=== PATIENT | female | born 1935 | race Caucasian/White ===

== ENCOUNTER 2017-02-26 15:06 | Inpatient (IN) ==
[2017-02-26] MEDS ORDERED: NITROGLYCERIN 2% OINT 1 INCH/GM PACK TOP STA (15:58)
[2017-02-26] MEDS ORDERED: FUROSEMIDE 100 MG/10 ML VIAL IV STA (15:58)
--- NOTE | 2017-02-26 16:06 | Emergency Department Note ---
Oswaldo Donato Brittany, am scribing for, and in the presence of, Donta Sands MD 16:02. Wicho Donato Robert M, MD, personally performed the services described in this documentation, ascribed by Malia Chacon in my presence, and it is both accurate and complete [id number] . Arrival - Arrival Chief Complaint: Shortness of Breath Stated Complaint: trouble breathing,fluid build up ED Nursing Triage Note: Pt c/o SOB for a few days. Mode of Arrival: Wheelchair Limitations: No Limitations Source: Patient, RN Notes Reviewed - History of Present Illness HPI Narrative: Patient is a 81 y/o morbidly obese white female presenting to the ED with c/o shortness of breath which per patient onset a few days ago. Patient states this is worsened upon exertion. She has had some lower extremity swelling, but denies having any associated chest pain, nausea, vomiting, diaphoresis, neck pain, or arm pain. Family in room notes that patient does not utilize at home oxygen, but does use breathing tx's at home. While providing history patient appears to become dyspneic. PMHx significant for CHF and NIDDM. No other complaint/pain in the ED at this time. Onset (ago): day(s) ("a few days") Consistency: constant Allergies/Adverse Reactions: Allergies Allergy/AdvReac Type Severity Reaction Status Date / Time No Known Allergies Allergy Verified 09/29/16 06:51 Home Medications: Home Medications Medication Instructions Recorded Confirmed Type Atorvastatin [Lipitor] 20 mg PO DAILY 07/26/15 11/11/16 History glipiZIDE [Glipizide] 5 mg PO BID W/MEALS 07/26/15 10/24/16 History Aspirin EC Tab 81 mg PO DAILY 09/15/15 10/24/16 History Amiodarone Tab [Cordarone Tab] 200 mg PO BID tablet 10/23/15 11/11/16 Rx Albuterol Sulfate [Proair HFA] 2 puff INH Q4H PRN #1 inhaler 12/17/15 10/24/16 Rx hydrALAZINE TAB [Apresoline Tab] 50 mg PO BID 02/17/16 11/11/16 History ALPRAZolam [Xanax] 0.5 mg PO Q12HR PRN #60 tablet 09/09/16 11/11/16 Rx Furosemide Tab [Lasix Tab] 80 mg PO BID #60 tablet 09/09/16 11/11/16 Rx Albuterol/Ipratropium Neb [Duoneb] 3 ml RESP TX RT Q6H nebulization 10/04/16 Rx solution Insulin Glargine [Lantus] 30 unit SUBCUT DAILY injection 10/04/16 10/24/16 Rx Insulin Regular [HumuLIN R] See Protocol SUBCUT ACHS injection 10/04/16 Rx Collagenase Oint [Santyl Oint] 1 applic TOP DAILY 10/24/16 10/24/16 History traZODone [Desyrel] 50 mg PO BEDTIME 10/24/16 11/11/16 History Pantoprazole Tab [Protonix Tab] 40 mg PO DAILY #60 tablet 10/28/16 11/11/16 Rx Isosorbide Mononitrate [Isosorbide 30 mg PO DAILY 11/11/16 11/11/16 History Mononitrate ER] Carvedilol [Coreg] 6.25 mg PO BID #60 tablet 11/15/16 Rx Clindamycin HCl [Clindamycin Cap] 600 mg PO Q8HR #20 capsule 11/15/16 Rx HYDROcodone/ACETAMIN 7.5-325 1 tablet PO Q4H PRN #20 tablet 11/15/16 Rx [[place] 7.5-325] Review of System - Review of System 12 point system: reviewed and no additional remarkable complaints except as stated - Review of System Constitutional: Absent: chills, fever Eyes: Absent: vision change Head/Ears/Nose/Throat: Absent: nasal drainage, sore throat Respiratory: Present: respiratory distress Cardiovascular: Absent: chest pain Gastrointestinal: Absent: abdominal pain, nausea, vomiting, diarrhea, constipation Genitourinary female: Absent: dysuria, frequency, urgency Musculoskeletal: Absent: arm pain, back pain, leg pain, neck pain Skin: Absent: rash Neurological: Absent: headache Psychiatric: Absent: anxiety, depression Medical,Surgical,& Family Hx - Medical History Cardio: History of: Cardiac Dysrhythmia (Paroxysmal atrial fibrillation), CHF ( Status post CRTD), CAD (Status post coronary bypass grafting in 2009), Hypertension, [place], Pacemaker (CRTD), Cardiovascular Problems (CABG --3 bypass 2009) Psychological: History of: Anxiety Disorders Neurology: History of: TIA No history of: Seizures HEENT: History of: Eye Problem (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)) Endocrine: History of: Diabetes Mellitus (IDDM), Diabetes Mellitus (NIDDM), Dyslipidemia No history of: Thyroid Disorder Respiratory: History of: COPD, Pulmonary Hypertension No history of: Pulmonary Embolism, Lung Cancer Renal: History of: Renal Failure (creatinine 2.2), Renal Problems Genitourinary: History of: Kidney Stones Hematology: No history of: Clotting Problems, Blood Disorders - Surgical History Cardiac Surgeries: Sugical HX of: Cardiac Catheterization, Cardiac Surgery (CABG ) Thoracic Surgeries: Patient denies;: Lobectomy HEENT Surgeries: Patient denies: Thyroid Surgery Abdominal Surgeries: Surgical HX of: Abdominal Surgery, Appendectomy, Cholecystectomy Reproductive Surgeries: Patient denies;: Gynecologic Surgery - Family History Family History: Reports;: Family Cancer (mother), Family Diabetes (brother), Family Heart Disease (father and brothers), Family Hypertension (sister) Denies;: Family Stroke - Social History Smoking Status: Never smoker Exam Vital Signs: Vital Signs Temperature 97.9 F 02/26/17 15:16 Pulse Rate 63 02/26/17 15:16 Respiratory Rate 26 H 02/26/17 15:16 Blood Pressure 166/80 02/26/17 15:16 O2 Sat by Pulse Oximetry 93 L 02/26/17 15:16 - General General appearance: alert, in no apparent distress, obese (morbidly) - Head Head exam: Present: atraumatic, normocephalic, normal inspection - Eye Eye exam: Present: normal appearance, PERRL, EOMI - ENT ENT exam: Present: normal exam, normal oropharynx - Neck Neck exam: Present: normal inspection, full ROM, trachea midline - Chest Chest inspection: Present: normal inspection, symmetric chest wall rise - Respiratory Respiratory exam: Present: respiratory distress (dyspneic when speaking), rhonchi (rhonchi noted, particularly in the left lung base). Absent: normal lung sounds bilaterally - Cardiovascular Cardiovascular exam: Present: regular rate, normal rhythm, normal heart sounds - Abdominal Exam Abdominal exam: Present: soft, normal bowel sounds. Absent: tenderness - Extremities Exam Extremities exam: Present: normal inspection - Back Exam Back exam: Present: normal inspection - Neurological Exam Neurological exam: Present: alert, oriented X3, CN II-XII intact. Absent: motor sensory deficit - Psychiatric Psychiatric exam: Present: normal affect, normal mood - Skin Skin exam: Present: warm, dry Course - Consultations Consultation #1: The hospitalist service will evaluate and admit the patient. Time: 17:12 Results - Labs CBC & BMP: 02/26/17 16:36 Lab Results: I have reviewed the patients labs Labs: Lab Results WBC 16.0 T/CUMM (4-12) H 02/26/17 16:36 RBC 3.52 MC/CUMM (3.8-5.5) L 02/26/17 16:36 Hgb 9.4 GM/DL (12.0-16.0) L 02/26/17 16:36 Hct 29.1 VOL% (35.7-47.0) L 02/26/17 16:36 MCV 82.7 FL (87-102) L 02/26/17 16:36 MCH 27 PG (27-34) 02/26/17 16:36 MCHC 32.3 GM/DL (32-36) 02/26/17 16:36 RDW 15.8 % (9.3-17.3) 02/26/17 16:36 Plt Count 426 T/CUMM (130-400) H 02/26/17 16:36 MPV 9.3 FL (9.6-12.0) L 02/26/17 16:36 Neut % (Auto) 62.3 % (38.7-73.9) 02/26/17 16:36 Lymph % (Auto) 22.2 % (21.3-54.2) 02/26/17 16:36 Sampson % (Auto) 4.7 % (1.7-12.7) 02/26/17 16:36 Eos % (Auto) 9.7 % (0.00-10.9) 02/26/17 16:36 Baso % (Auto) 0.5 % (0.0-0.8) 02/26/17 16:36 Neut # (Auto) 10.0 10*3/uL (1.4-7.4) H 02/26/17 16:36 Lymph # (Auto) 3.5 10*3/uL (1.4-4.0) 02/26/17 16:36 Sampson # (Auto) 0.8 10*3/uL (0.11-0.8) 02/26/17 16:36 Eos # (Auto) 1.6 10*3/uL (0.0-0.87) H 02/26/17 16:36 Baso # (Auto) 0.1 10*3/uL (0.0-0.2) 02/26/17 16:36 Immature Gran % 0.6 % 02/26/17 16:36 Nucleated RBC % 0.0 /100WBC 02/26/17 16:36 Immature Gran # 0.09 # 02/26/17 16:36 Nucleated RBCs # 0.00 10*3/uL 02/26/17 16:36 - Diagnostic Findings Procedure: Chest x-ray: image reviewed by me (CHF with mild volume overload. Pacemaker is stable.) Disposition Clinical Impression: Cardiomyopathy, Mitral regurgitation, Dyspnea, Atrial fibrillation with RVR, Chronic systolic CHF (congestive heart failure), Diabetes mellitus, Acute on chronic diastolic CHF (congestive heart failure) Case discussed with: patient, patient's family Disposition: Still a Patient Condition: Stable Time of Disposition: 17:13
--- NOTE | 2017-02-26 16:16 | XRay Report ---
History: Shortness of breath Date: 02/26/2017 Study: Chest x-ray AP portable Comparison exam: October 24, 2016 There is cardiomegaly. The pulmonary vasculature is slightly prominent. There is some hazy pulmonary edema in the lung bases, left more than right. A left subclavian multiple lead transvenous pacemaker device is stable in appearance. Osseous structures are unchanged. Impression: Cardiomegaly and evidence of CHF with some mild bibasilar pulmonary edema PROCEDURE INTERPRETED AT [facility] DEPARTMENT OF RADIOLOGY Final Report Signed by: Dr. Shira Sweet
[2017-02-26] MEDS ORDERED: NITROGLYCERIN 2% OINT 1 INCH/GM PACK TOP ONE (16:53)
[2017-02-26] MEDS ORDERED: FUROSEMIDE 40 MG/4 ML VIAL ONE (16:53)
[2017-02-26] MEDS ORDERED: FUROSEMIDE 20 MG/2 ML VIAL ONE (16:53)
[2017-02-26 17:04] LABS: Basophils # 0.1 10*3/uL (0.0-0.2); Basophils % 0.5 % (0.0-0.8); Eosinophils # 1.6 10*3/uL (0.0-0.87); Eosinophils % 9.7 % (0.00-10.9); Hematocrit 29.1 VOL% (35.7-47.0); Hemoglobin 9.4 GM/DL (12.0-16.0); Immature Granulocytes % 0.6 %; Immature Granulocytes Absolute 0.09 #; Lymphocytes # 3.5 10*3/uL (1.4-4.0); Lymphocytes % 22.2 % (21.3-54.2); Mean Corpuscular HGB Conc 32.3 GM/DL (32-36); Mean Corpuscular Hemoglobin 27 PG (27-34); Mean Corpuscular Volume 82.7 FL (87-102); Mean Platelet Volume 9.3 FL (9.6-12.0); Monocytes # 0.8 10*3/uL (0.11-0.8); Monocytes % 4.7 % (1.7-12.7); Neutrophils % 62.3 % (38.7-73.9); Platelet Count 426 T/CUMM (130-400); Red Blood Count 3.52 MC/CUMM (3.8-5.5); Red Cell Distribution Width 15.8 % (9.3-17.3)
[2017-02-26 17:11] LABS: INR 1.1
[2017-02-26 17:26] LABS: Albumin 2.4 G/DL (3.4-5.0); Bilirubin,Total 0.4 MG/DL (0.2-1.0); Calcium 8.1 MG/DL (8.5-10.1); Potassium 3.8 MMOL/L (3.5-5.1); Total Protein 6.4 G/DL (6.4-8.3); Troponin I Only 0.026 NG/ML (0.00-0.045)
--- NOTE | 2017-02-26 17:43 | Hospitalist History & Physical ---
Assessment and Plan (1) Chronic kidney disease Status: Acute Assessment and plan: The patient has documented chronic kidney disease. BUN and creatinine noted at 35 and 2.80 at the time of admission. Upon review of previous medical records last encounter on November 15, 2016 BUN was noted at 46 creatinine at 2.80. This is somewhat of an improvement ,however we will monitor closely during the clinical encounter. Current Visit: Yes (2) Diabetes Status: Acute Assessment and plan: We will obtain hemoglobin A1c, start Accu-Cheks with sliding scale coverage. Current Visit: Yes (3) Chronic systolic CHF (congestive heart failure) Status: Chronic Assessment and plan: We will diurese with caution due to patient's current renal function. We will resume home medications as previously ordered, obtain BNP, recheck chest x-ray and lites in a.m.. Will obtain echocardiogram and consult cardiology to evaluate and assist during the clinical encounter. Current Visit: Yes History of Present Illness Chief complaint: Shortness of breath History of present illness: This is a chronically ill 81-year-old female that presented to the ED at [facility] this afternoon for the evaluation of shortness of breath. 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 Patient has surgical history significant for: Biventricular ICD placement, cardiac catheterization, coronary artery bypass graft, appendectomy, and cholecystectomy. The patient reported the onset of symptoms 2 days prior to presentation. She reports that the dyspnea became so severe that she was unable to lie flat last night and becomes very tired upon minimal exertion. Pertinent positives include: Dyspnea , edema, orthopnea, paroxysmal nocturnal dyspnea, and malaise; pertinent negative include: Chest pain, nausea, vomiting, diaphoresis, neck or arm pain; pertinent negatives. The family reported that they gave multiple nebulizer treatments prior to presentation however the treatments were ineffective. They became concerned due to the severity of her respiratory status and transported her to the ED for further evaluation. At the time of ED presentation, the patient was notably dyspneic. Inhaled bronchodilators were initiated. Labs were obtained; complete blood count reported WBCs at 16.0, hemoglobin 9.4, hematocrit 29.1, and platelet count of 426. Coagulation panels reported an INR at 1.1, PT 12.0. Complete metabolic profile reported a sodium at 143, potassium 3.8, chloride 104, carbon dioxide 29 , BUN 35, creatinine 2.80, glucose 77, calcium 8.1, magnesium 2.0, AST at 57, ALT 52, alkaline phosphatase at 83. Cardiac enzymes reported a troponin at 0.026. Chest x-ray reported cardiomegaly and evidence of congestive heart failure with submitted bibasilar pulmonary edema. After brief discussion with both Dr. Sands and Dr. Olivares, the patient will be admitted to the hospitalist services for continuation of care. Home medications have been reviewed and reconciled. CODE STATUS discussed; patient is a FULL CODE. Home Medications Medication Instructions Recorded Confirmed Type Atorvastatin [Lipitor] 20 mg PO DAILY 07/26/15 11/11/16 History glipiZIDE [Glipizide] 5 mg PO BID W/MEALS 07/26/15 10/24/16 History Aspirin EC Tab 81 mg PO DAILY 09/15/15 10/24/16 History Amiodarone Tab [Cordarone Tab] 200 mg PO BID tablet 10/23/15 11/11/16 Rx Albuterol Sulfate [Proair HFA] 2 puff INH Q4H PRN #1 inhaler 12/17/15 10/24/16 Rx hydrALAZINE TAB [Apresoline Tab] 50 mg PO BID 02/17/16 11/11/16 History ALPRAZolam [Xanax] 0.5 mg PO Q12HR PRN #60 tablet 09/09/16 11/11/16 Rx Furosemide Tab [Lasix Tab] 80 mg PO BID #60 tablet 09/09/16 11/11/16 Rx Albuterol/Ipratropium Neb [Duoneb] 3 ml RESP TX RT Q6H nebulization 10/04/16 Rx solution Insulin Glargine [Lantus] 30 unit SUBCUT DAILY injection 10/04/16 10/24/16 Rx Insulin Regular [HumuLIN R] See Protocol SUBCUT ACHS injection 10/04/16 Rx Collagenase Oint [Santyl Oint] 1 applic TOP DAILY 10/24/16 10/24/16 History traZODone [Desyrel] 50 mg PO BEDTIME 10/24/16 11/11/16 History Pantoprazole Tab [Protonix Tab] 40 mg PO DAILY #60 tablet 10/28/16 11/11/16 Rx Isosorbide Mononitrate [Isosorbide 30 mg PO DAILY 11/11/16 11/11/16 History Mononitrate ER] Carvedilol [Coreg] 6.25 mg PO BID #60 tablet 11/15/16 Rx Clindamycin HCl [Clindamycin Cap] 600 mg PO Q8HR #20 capsule 11/15/16 Rx HYDROcodone/ACETAMIN 7.5-325 1 tablet PO Q4H PRN #20 tablet 11/15/16 Rx [[place] 7.5-325] Allergies Allergy/AdvReac Type Severity Reaction Status Date / Time No Known Allergies Allergy Verified 09/29/16 06:51 Medical,Surgical,& Family Hx - Medical History Cardio: History of: Cardiac Dysrhythmia (Paroxysmal atrial fibrillation), CHF ( Status post CRTD), CAD (Status post coronary bypass grafting in 2009), Hypertension, [place], Pacemaker (CRTD), Cardiovascular Problems (CABG --3 bypass 2009) Psychological: History of: Anxiety Disorders Neurology: History of: TIA No history of: Seizures HEENT: History of: Eye Problem (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)) Endocrine: History of: Diabetes Mellitus (IDDM), Diabetes Mellitus (NIDDM), Dyslipidemia No history of: Thyroid Disorder Respiratory: History of: COPD, Pulmonary Hypertension No history of: Pulmonary Embolism, Lung Cancer Renal: History of: Renal Failure (creatinine 2.2), Renal Problems Genitourinary: History of: Kidney Stones Hematology: No history of: Clotting Problems, Blood Disorders - Surgical History Cardiac Surgeries: Sugical HX of: Cardiac Catheterization, Cardiac Surgery (CABG ) Thoracic Surgeries: Patient denies;: Lobectomy HEENT Surgeries: Patient denies: Thyroid Surgery Abdominal Surgeries: Surgical HX of: Abdominal Surgery, Appendectomy, Cholecystectomy Reproductive Surgeries: Patient denies;: Gynecologic Surgery - Family History Family History: Reports;: Family Cancer (mother), Family Diabetes (brother), Family Heart Disease (father and brothers), Family Hypertension (sister) Denies;: Family Stroke - Social History Smoking Status: Never smoker 12 point system: reviewed and no additional remarkable complaints except as stated Exam - Constitutional Vitals: Period Temp Pulse Resp BP Sys/Bhatti Pulse Ox Last 24 Hr 97.9 F 63 26 166/80 93 General appearance: mild distress, morbidly obese - Head Head exam: Present: normal inspection, normocephalic, atraumatic - Eye Pupils: Present: ISHA (Equal round and reactive to the right eye only; cataract noted to the left eye no reaction noted) - ENT ENT exam: Present: normal exam, normal external ear exam, normal oropharynx - Neck Neck exam: Present: normal inspection. Absent: lymphadenopathy, meningismus, thyromegaly - Respiratory Respiratory exam: Present: accessory muscle use, rhonchi - Cardiovascular Cardiovascular exam: Present: regular rate and rhythm. Absent: carotid bruit, diastolic murmur, gallop, JVD, rubs, systolic murmur - GI/Abdominal GI/Abdominal exam: Present: normal bowel sounds, soft - Extremities Exam Extremities exam: Present: edema (+3 edema noted to bilateral lower extremities) - Back Exam Back exam: Present: normal inspection - Neurological Exam Neurological exam: Present: alert, oriented X3 - Psychiatric Psychiatric exam: Present: anxious - Skin Skin exam: Present: normal color, warm, dry Results - Labs CBC & BMP: 02/26/17 16:36 02/26/17 16:36 Lab Results: I have reviewed the past 24 hour labs
[2017-02-26] MEDS ORDERED: DOCUSATE SODIUM 100 MG CAPSULE PO PRN (18:58)
[2017-02-26] MEDS ORDERED: ZALEPLON 5 MG CAPSULE PO PRN (18:58)
[2017-02-26] MEDS ORDERED: ONDANSETRON 4 MG/2 ML VIAL IV PRN (18:58)
[2017-02-26] MEDS ORDERED: GLUCAGON 1 MG VIAL IM PRN (19:01)
[2017-02-26] MEDS ORDERED: ALBUTEROL 2.5 MG/3 ML NEB RESP TX PRN (19:03)
[2017-02-26] MEDS ORDERED: ALPRAZolam 0.5 MG TABLET PO PRN (19:03)
[2017-02-26 19:59] LABS: Calcium 7.9 MG/DL (8.5-10.1)
[2017-02-26 20:36] LABS: Apearance,Urine CLEAR (Clear); Bilirubin,Urine Negative (Negative); Blood, Urine Negative (Negative); Glucose,Urine (UA) Negative (Negative); Ketones,Urine Negative (Negative); Mucus,Urine Occasional /LPF (Occasional); Nitrite,Urine Negative (Negative); Protein,Urine Negative; RBC,Urine 1 /HPF (0-4); Urine Color Straw (Yellow); Urine Specific Gravity 1.006 (1.001-1.035); Urine Urobilinogen < 2.0 EU/DL (0.2-1.0); WBC,Urine <1 /HPF (0-6)
[2017-02-26] MEDS: SILVER SULFADIAZINE 1% CREAM 25 GM TUBE TOP SCH (21:23)
[2017-02-26] MEDS: CLINDAMYCIN 300 MG CAPSULE PO SCH (21:24)
[2017-02-26] MEDS: CARVEDILOL 6.25 MG TABLET PO SCH (21:24)
[2017-02-26] MEDS: FUROSEMIDE 100 MG/10 ML VIAL IV SCH (21:24)
[2017-02-26] MEDS: AMIODARONE 200 MG TABLET PO SCH (21:24)
[2017-02-26] MEDS: ENOXAPARIN 30 MG/0.3 ML SYRINGE SUBCUT SCH (21:32)
[2017-02-27] MEDS: ALBUTEROL/IPRATROPIUM 3 ML NEB RESP TX SCH ×4 (00:21→19:33)
--- NOTE | 2017-02-27 02:40 | EKG Report ---
Stationary ECG Study [facility] ER Test Date: 02/26/2017 3:23:30 PM Pat Name: ROSA ELENA SCHWAB Department: Room: 522 Gender: F Core Piler: Ramesh Santiago : 1935 Requested by: Donta Sands Order Number: [id number] Reading MD: TIFFANY KAM Intervals Hardy Rate: 59 P: 999 MI: 163 QRS: 207 QRSD: 174 T: 78 QT: 519 QTc: 519 Interpretive Statements Atrial-biventricular paced rhythm Electronically Signed On 02-27-17 08:52:29 CDT by TIFFANY KAM [email or web address]
[2017-02-27] MEDS: FUROSEMIDE 100 MG/10 ML VIAL IV SCH ×3 (03:47→20:03)
[2017-02-27] MEDS: CLINDAMYCIN 300 MG CAPSULE PO SCH ×3 (05:39→21:15)
[2017-02-27 06:32] LABS: Basophils # 0.1 10*3/uL (0.0-0.2); Basophils % 0.6 % (0.0-0.8); Eosinophils # 1.1 10*3/uL (0.0-0.87); Eosinophils % 9.6 % (0.00-10.9); Hematocrit 26.3 VOL% (35.7-47.0); Hemoglobin 8.5 GM/DL (12.0-16.0); Immature Granulocytes % 0.6 %; Immature Granulocytes Absolute 0.07 #; Lymphocytes # 2.7 10*3/uL (1.4-4.0); Lymphocytes % 22.9 % (21.3-54.2); Mean Corpuscular HGB Conc 32.3 GM/DL (32-36); Mean Corpuscular Hemoglobin 27 PG (27-34); Mean Corpuscular Volume 82.7 FL (87-102); Mean Platelet Volume 9.2 FL (9.6-12.0); Monocytes # 0.7 10*3/uL (0.11-0.8); Monocytes % 5.8 % (1.7-12.7); Neutrophils % 60.5 % (38.7-73.9); Platelet Count 364 T/CUMM (130-400); Red Blood Count 3.18 MC/CUMM (3.8-5.5); Red Cell Distribution Width 15.8 % (9.3-17.3); White Blood Count 11.6 T/CUMM (4-12)
--- NOTE | 2017-02-27 07:45 | XRay Report ---
Exam: XR chest 1V portable Date: 02/27/2017 4:00 AM Indication: Shortness of breath Comparison: 02/26/2017 Technical: AP portable Findings: Cardiac pacing device with defibrillator leads with atrial ventricular and coronary sinus leads present. External cardiac leads are present. ASVD is present. There is calcic is in tracheobronchial tree. Surgical clips are present in the left aortopulmonic window area and previous sternotomy wires are present. Low volume effusions and mild shunt vascularity without pneumothorax. Cardiomegaly is noted. Impression: 1. Persistent cardiomegaly and mild CHF 2. Stable persistent cardiac pacing device defibrillator leads 3. Previous sternotomy PROCEDURE INTERPRETED AT [facility] DEPARTMENT OF RADIOLOGY Final Report Signed by: Dr. Gunner Danielle
[2017-02-27] MEDS: metOLazone 2.5 MG TABLET PO SCH (08:26)
[2017-02-27] MEDS: ATORVASTATIN 20 MG TABLET PO SCH (08:26)
[2017-02-27] MEDS: ISOSORBIDE MONONITRATE 30 MG TABLET PO SCH (08:26)
[2017-02-27] MEDS: INSULIN GLARGINE 100 UNIT/ML SUBCUT SCH (08:26)
[2017-02-27] MEDS: glipiZIDE 5 MG TABLET PO SCH ×2 (08:26→16:10)
[2017-02-27] MEDS: PANTOPRAZOLE 40 MG TABLET PO SCH (08:26)
[2017-02-27] MEDS: INSULIN REGULAR 100 UNIT/ML SUBCUT SCH ×2 (08:26→16:10)
[2017-02-27] MEDS: AMIODARONE 200 MG TABLET PO SCH ×2 (08:26→20:03)
[2017-02-27] MEDS: CARVEDILOL 6.25 MG TABLET PO SCH ×2 (08:26→20:03)
[2017-02-27] MEDS: SILVER SULFADIAZINE 1% CREAM 25 GM TUBE TOP SCH (08:27)
[2017-02-27] MEDS ORDERED: COLLAGENASE OINT 30 GM TUBE TOP SCH (09:00)
[2017-02-27] MEDS: DESITIN 4OZ/NYSTATIN 15 GRAM MIXTURE PASTE TOP SCH ×2 (13:12→20:07)
--- NOTE | 2017-02-27 14:34 | Hospitalist Progress Note ---
Assessment and Plan (1) Acute exacerbation of CHF (congestive heart failure) Status: Acute Assessment and plan: acute systolic and diastolic heart failure, BNP elevated at 1324, cont lasix 60 mg IV every 8 hours. Cont coreg Current Visit: Yes (2) Atrial fibrillation Status: Chronic Assessment and plan: cont coreg and amiodarone Current Visit: No Qualifiers: Atrial fibrillation type: paroxysmal Qualified Code(s): I48.0 - Paroxysmal atrial fibrillation (3) Insulin dependent diabetes mellitus Status: Chronic Assessment and plan: cont glipizide and lantus 30 units Current Visit: No (4) HTN (hypertension) Status: Chronic Assessment and plan: controlled Current Visit: No Qualifiers: (5) Chronic kidney disease Status: Acute Assessment and plan: chronic stage 3 Current Visit: Yes (6) Anemia Status: Acute Assessment and plan: cont protonix Current Visit: Yes Hospitalist: Subjective Interval history: Patient lives independently. She came in for shortness of breath and was told she had CHF exacerbation. Her last echo was in May 2016 at which time her EF is only 10%. She also has grade 4 diastolic dysfunction and severe pulmonary hypertension with PAP of 57 Exam - Constitutional Vitals: Period Temp Pulse Resp BP Sys/Bhatti Pulse Ox Last 24 Hr 97.2 F-99.1 F 60-69 16-26 123-166/54-80 92-99 Exam: Heart Rate-[RRR] Lungs-[very diminished ] GI-[+bs soft, NT] Ext-[trace edema] Neuro [Motor 5/5], [alert and oriented times 3] psych [normal mood and affect] General [no acute distress] Results - Labs CBC & BMP: 02/27/17 06:03 02/26/17 19:27 Lab Results: I have reviewed the past 24 hour labs Labs: UA is negative for infection - Diagnostic Findings Procedure: Chest x-ray: report reviewed by me (Cardiomegaly and CHF pacing device noted), Ultrasound: report reviewed by me (Echo from May 2016 with EF of 10% and grade 4 diastolic dysfunction with severe pulmonary hypertension.) Quality Measures - VTE Contraindication to Mechanical VTE Prophylaxis: Local Inflammation
[2017-02-27] MEDS: ENOXAPARIN 30 MG/0.3 ML SYRINGE SUBCUT SCH (18:24)
[2017-02-27] MEDS: DEXTROSE 50% 25 GM/50 ML VIAL IV PRN (21:20)
[2017-02-28] MEDS: ALBUTEROL/IPRATROPIUM 3 ML NEB RESP TX SCH ×4 (00:09→18:50)
[2017-02-28] MEDS: FUROSEMIDE 100 MG/10 ML VIAL IV SCH ×3 (03:47→19:55)
[2017-02-28] MEDS: CLINDAMYCIN 300 MG CAPSULE PO SCH (05:46)
[2017-02-28] MEDS: ISOSORBIDE MONONITRATE 30 MG TABLET PO SCH (08:36)
[2017-02-28] MEDS: INSULIN GLARGINE 100 UNIT/ML SUBCUT SCH (08:36)
[2017-02-28] MEDS: PANTOPRAZOLE 40 MG TABLET PO SCH (08:36)
[2017-02-28] MEDS: AMIODARONE 200 MG TABLET PO SCH ×2 (08:36→20:00)
[2017-02-28] MEDS: INSULIN REGULAR 100 UNIT/ML SUBCUT SCH ×2 (08:36→16:16)
[2017-02-28] MEDS: ATORVASTATIN 20 MG TABLET PO SCH (08:36)
[2017-02-28] MEDS: metOLazone 2.5 MG TABLET PO SCH (08:36)
[2017-02-28] MEDS: SILVER SULFADIAZINE 1% CREAM 25 GM TUBE TOP SCH (08:36)
[2017-02-28] MEDS: CARVEDILOL 6.25 MG TABLET PO SCH ×2 (08:36→20:00)
[2017-02-28] MEDS: DESITIN 4OZ/NYSTATIN 15 GRAM MIXTURE PASTE TOP SCH ×2 (08:36→20:01)
--- NOTE | 2017-02-28 10:15 | Hospitalist Progress Note ---
Assessment and Plan (1) Acute exacerbation of CHF (congestive heart failure) Status: Acute Assessment and plan: acute systolic and diastolic heart failure, BNP elevated at 1324, cont lasix 60 mg IV every 8 hours. Cont coreg, bmp in am Current Visit: Yes (2) Atrial fibrillation Status: Chronic Assessment and plan: cont coreg and amiodarone Current Visit: No Qualifiers: Atrial fibrillation type: paroxysmal Qualified Code(s): I48.0 - Paroxysmal atrial fibrillation (3) Insulin dependent diabetes mellitus Status: Chronic Assessment and plan: cont lantus, but hold glucotrol Current Visit: No (4) HTN (hypertension) Status: Chronic Assessment and plan: controlled Current Visit: No Qualifiers: (5) Chronic kidney disease Status: Acute Assessment and plan: chronic stage 3 Current Visit: Yes (6) Anemia Status: Acute Assessment and plan: cont protonix Current Visit: Yes (7) Open wound of both lower extremities with complication Status: Acute Assessment and plan: Dr. Cesar consulted and wound care consulted, may need debridement, wbc improving , change clindamycin to IV Current Visit: Yes Hospitalist: Subjective Interval history: bs drooped to 41, glucotrol xl on hold, patient does not want to go for rehab, cared for at home by family. daughter at bedside. Exam - Constitutional Vitals: Period Temp Pulse Resp BP Sys/Bhatti Pulse Ox Last 24 Hr 97.4 F-98.8 F 57-61 16-20 114-142/45-64 95-100 Exam: Heart Rate-[RRR] Lungs-[very diminished but clear GI-[+bs soft, NT] Ext-[trace edema] Neuro [Motor 5/5], [alert and oriented times 3] psych [normal mood and affect] General [no acute distress] Skin necrotic and nonhealing bilateral leg wounds per pictures Results - Labs CBC & BMP: 02/27/17 06:03 02/26/17 19:27 Lab Results: I have reviewed the past 24 hour labs Labs: Urine culture growing gram-negative rods, blood cultures 2 negative no growth Quality Measures - VTE Contraindication to Mechanical VTE Prophylaxis: Local Inflammation
[2017-02-28] MEDS: CLINDAMYCIN INJ 600 MG in PREMIX 1 EACH IV SCH ×2 (11:42→17:30)
--- NOTE | 2017-02-28 13:26 | General Surgery Consult Note ---
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 Chronic bilateral lower extremity ulcers in a diabetic patient. She likely has a component of peripheral vascular disease, especially on the right, and in fact this is corroborated with her son who is present. She is followed locally by Dr. Dax Harman in [place] [facility]. They currently have local treatment plan in place with [place], and I do not disagree with this. At this time, there is no gross clinical sign of infection and she is also being treated systemically with clindamycin for pulmonary condition, which should cover any additional organisms present. I think we should continue to focus on her local care, light compression, and elevation, being aware that she likely has a component of underlying arterial insufficiency. Should the areas worsen under our watch, we may consider investigating her circulatory status further, but at this time with her other comorbidities, her sons awareness of her condition and seemingly wariness about making a lot of changes in her care regimen, I feel it safe to just observe her closely for any signs of digression, and only consider intervening or changing her care if we are concerned that she is in fact losing ground. Current Visit: Yes (2) Peripheral vascular disease in diabetes mellitus Status: Acute Current Visit: No History of Present Illness Chief complaint: Bilateral lower extremity ulcers History of present illness: Ms. Marcano is a 81 year old female Home Medications Medication Instructions Recorded Confirmed Type Atorvastatin [Lipitor] 20 mg PO DAILY 07/26/15 02/27/17 History glipiZIDE [Glipizide] 5 mg PO BID W/MEALS 07/26/15 02/27/17 History Aspirin EC Tab 81 mg PO DAILY 09/15/15 02/27/17 History Amiodarone Tab [Cordarone Tab] 200 mg PO BID tablet 10/23/15 02/27/17 Rx hydrALAZINE TAB [Apresoline Tab] 50 mg PO BID 02/17/16 02/27/17 History Furosemide Tab [Lasix Tab] 80 mg PO BID #60 tablet 09/09/16 02/27/17 Rx traZODone [Desyrel] 50 mg PO BEDTIME 10/24/16 02/27/17 History Isosorbide Mononitrate [Isosorbide 30 mg PO DAILY 11/11/16 02/27/17 History Mononitrate ER] Carvedilol [Coreg] 6.25 mg PO BID #60 tablet 11/15/16 02/27/17 Rx Cilostazol [Pletal] 50 mg PO BID 02/27/17 02/27/17 History HYDROcodone/ACETAMIN 7.5-325 7.5 mg PO Q6HR PRN 02/27/17 02/27/17 History [[place] 7.5-325] Multivitamin [Multivitamins] 1 tablet PO DAILY 02/27/17 02/27/17 History Allergies Allergy/AdvReac Type Severity Reaction Status Date / Time No Known Allergies Allergy Verified 09/29/16 06:51 Medical,Surgical,& Family Hx - Medical History Cardio: History of: Cardiac Dysrhythmia (Paroxysmal atrial fibrillation), CHF ( Status post CRTD), CAD (Status post coronary bypass grafting in 2009), Hypertension, MS, Pacemaker (CRTD), Cardiovascular Problems (CABG --3 bypass 2009) Psychological: History of: Anxiety Disorders Neurology: History of: TIA No history of: Seizures HEENT: History of: Eye Problem (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)) Endocrine: History of: Diabetes Mellitus (IDDM), Diabetes Mellitus (NIDDM), Dyslipidemia No history of: Thyroid Disorder Respiratory: History of: COPD, Pulmonary Hypertension No history of: Pulmonary Embolism, Lung Cancer Renal: History of: Renal Failure (creatinine 2.2), Renal Problems Genitourinary: History of: Kidney Stones Hematology: No history of: Clotting Problems, Blood Disorders Other: History of: Miscellaneous Medical Problems (Bilateral lower extremity ulcers with chronic venous stasis disease) - Surgical History Cardiac Surgeries: Sugical HX of: Cardiac Catheterization, Cardiac Surgery (CABG ) Thoracic Surgeries: Patient denies;: Lobectomy HEENT Surgeries: Patient denies: Thyroid Surgery Abdominal Surgeries: Surgical HX of: Abdominal Surgery, Appendectomy, Cholecystectomy Reproductive Surgeries: Patient denies;: Gynecologic Surgery - Family History Family History: Reports;: Family Cancer (mother), Family Diabetes (brother), Family Heart Disease (father and brothers), Family Hypertension (sister) Denies;: Family Stroke - Social History Smoking Status: Never smoker Exam - Constitutional Vitals: Period Temp Pulse Resp BP Sys/Bhatti Pulse Ox Last 24 Hr 97.4 F-98.6 F 57-61 16-20 114-147/45-70 95-100 General appearance: morbidly obese, other (She is sitting up in bed with family present, in no acute distress at this time. Her nasal cannula oxygen is in place and she is eating lunch. She is able to carry on short sentences before becoming short of breath.) - Head Head exam: Present: normocephalic - Eye Eye exam: Absent: periorbital swelling - ENT Mouth exam: Present: dry mucosa - Respiratory Respiratory exam: Present: other (See above. She is able to carry short sentences before becoming short of breath. There is no gross rales or wheezes.) . Absent: accessory muscle use, stridor - Cardiovascular Cardiovascular exam: Present: RRR - GI/Abdominal GI/Abdominal exam: Present: other (Abdomen is obese and soft hypoactive bowel sounds. No guarding, no distention, no rebound tenderness) - Extremities Exam Extremities exam: Present: other (Bilateral lower extremities are wrapped from the knee down. There is trace to 1+ edema. There is no advancing erythema. On the left medial heel has a moist, very tender ulceration with fatty layer exposed. This is roughly 4 x 2.5 cm in size. Posterior to this is some soft, necrotic tissue with eschar. This is difficult to assess with certainty, as there is Silvadene on the wound, but I see no gross purulence or loose necrotic tissue present. At the anterior tibia on the left there are 2 smaller more superficial ulcers each less than 1 cm in size. There is no gross necrotic tissue, no purulence, no advancing redness of these areas. On the right, there are more extensive ulcerations. These extend from the mid calf along the gaiter area laterally allthewayto the lateral malleolus. These wounds do have soft eschar and slough present. Again this is difficult to assess with certainty due to the Silvadene, but there is no redness, no gross purulence, and no large volume necrotic tissue present. These of course are quite tender to touch, and have the character more consistent of an arterial insufficiency type ulcer. It is difficult to palpate pulses with certainty, although there is no gross pallor, no grossly ischemic changes or hyperemia of the feet. At times I do think I am able to palpate a 1+ dorsalis pedis pulse bilaterally. There is a slightly delayed capillary refill, and approximately 3-4 seconds on the right with 2-3 second capillary refill on the left. Calves are soft and nontender.) - Neurological Exam Neurological exam: Present: alert, oriented X3 Quality Measures - VTE Contraindication to Mechanical VTE Prophylaxis: Local Inflammation Results - Labs CBC & BMP: 02/27/17 06:03 02/26/17 19:27 Lab Results: I have reviewed the past 24 hour labs (H&H is low 8.5/26.3)
[2017-02-28] MEDS: ENOXAPARIN 30 MG/0.3 ML SYRINGE SUBCUT SCH (18:11)
[2017-03-01] MEDS: FUROSEMIDE 100 MG/10 ML VIAL IV SCH ×3 (02:30→14:25)
[2017-03-01] MEDS: CLINDAMYCIN INJ 600 MG in PREMIX 1 EACH IV SCH ×3 (02:35→17:33)
[2017-03-01 04:32] LABS: Basophils % 0.3 % (0.0-0.8); Eosinophils # 1.7 10*3/uL (0.0-0.87); Eosinophils % 13.1 % (0.00-10.9); Hematocrit 24.7 VOL% (35.7-47.0); Immature Granulocytes % 0.5 %; Immature Granulocytes Absolute 0.07 #; Lymphocytes # 2.4 10*3/uL (1.4-4.0); Lymphocytes % 18.5 % (21.3-54.2); Mean Corpuscular HGB Conc 32.4 GM/DL (32-36); Mean Corpuscular Hemoglobin 27 PG (27-34); Mean Corpuscular Volume 83.2 FL (87-102); Mean Platelet Volume 9.4 FL (9.6-12.0); Monocytes # 0.8 10*3/uL (0.11-0.8); Monocytes % 6.5 % (1.7-12.7); Neutrophils # 7.9 10*3/uL (1.4-7.4); Neutrophils % 61.1 % (38.7-73.9); Platelet Count 346 T/CUMM (130-400); Red Blood Count 2.97 MC/CUMM (3.8-5.5); Red Cell Distribution Width 15.9 % (9.3-17.3)
[2017-03-01 04:56] LABS: Band Neutrophils 1 % (0-10); Eosinophils 14 % (0-10); Hypochromasia 2+; Lymphocytes 13 % (20-55); Platelet Estimate Normal; Segmented Neutrophils 68 % (50-85); Total Cells Counted 100
[2017-03-01 04:57] LABS: Calcium 7.9 MG/DL (8.5-10.1); Potassium 3.5 MMOL/L (3.5-5.1)
[2017-03-01] MEDS: DEXTROSE 50% 25 GM/50 ML VIAL IV PRN (05:30)
[2017-03-01] MEDS: ALBUTEROL/IPRATROPIUM 3 ML NEB RESP TX SCH ×4 (07:38→19:42)
[2017-03-01] MEDS: INSULIN REGULAR 100 UNIT/ML SUBCUT SCH ×2 (07:54→16:33)
[2017-03-01] MEDS: AMIODARONE 200 MG TABLET PO SCH ×2 (08:07→21:09)
[2017-03-01] MEDS: DESITIN 4OZ/NYSTATIN 15 GRAM MIXTURE PASTE TOP SCH ×2 (08:07→21:28)
[2017-03-01] MEDS: SILVER SULFADIAZINE 1% CREAM 25 GM TUBE TOP SCH (08:08)
[2017-03-01] MEDS: metOLazone 2.5 MG TABLET PO SCH (08:08)
[2017-03-01] MEDS: ISOSORBIDE MONONITRATE 30 MG TABLET PO SCH (08:08)
[2017-03-01] MEDS: CARVEDILOL 6.25 MG TABLET PO SCH ×2 (08:08→21:09)
[2017-03-01] MEDS: INSULIN GLARGINE 100 UNIT/ML SUBCUT SCH (08:08)
[2017-03-01] MEDS: PANTOPRAZOLE 40 MG TABLET PO SCH (08:08)
[2017-03-01] MEDS: ATORVASTATIN 20 MG TABLET PO SCH (08:08)
[2017-03-01] MEDS ORDERED: MAGNESIUM HYDROXIDE SUSP 30 ML UDCUP PO PRN (09:18)
[2017-03-01] MEDS ORDERED: MAGNESIUM HYDROXIDE SUSP 30 ML UDCUP PO ONE (09:18)
[2017-03-01] MEDS ORDERED: SODIUM CHLORIDE 0.9% 250 ML IV PRN (09:20)
--- NOTE | 2017-03-01 14:06 | Hospitalist Progress Note ---
Assessment and Plan (1) Acute exacerbation of CHF (congestive heart failure) Status: Acute Assessment and plan: Continue Lasix every 12 hours Current Visit: Yes (2) Atrial fibrillation Status: Chronic Assessment and plan: cont coreg and amiodarone Current Visit: No Qualifiers: Atrial fibrillation type: paroxysmal Qualified Code(s): I48.0 - Paroxysmal atrial fibrillation (3) Insulin dependent diabetes mellitus Status: Chronic Assessment and plan: Blood sugar too low on Glucotrol will stop Glucotrol and hold Lantus until after debridement Current Visit: No (4) HTN (hypertension) Status: Chronic Assessment and plan: controlled Current Visit: No Qualifiers: (5) Chronic kidney disease Status: Acute Assessment and plan: chronic stage 3 Current Visit: Yes (6) Anemia Status: Acute Assessment and plan: cont protonix Current Visit: Yes (7) Open wound of both lower extremities with complication Status: Acute Assessment and plan: Dr. Cesar recommends debridement, continue clindamycin. White count at 13 Current Visit: Yes Hospitalist: Subjective Interval history: I had a long conversation with his son. Am concerned about her nonhealing wounds. Son reports the patient just wants to sit in her chair all day and have everybody wait on her and has no incentive to get up and move around. He reports she does well when she is at the swing bed but when she comes back home she sits in her chair and does not want to move. We will ask specialty to take a look at her. I did Dr. Cesar take a look at her wounds because I think some of them needs some debridement. Exam - Constitutional Vitals: Period Temp Pulse Resp BP Sys/Bhatti Pulse Ox Last 24 Hr 97.7 F-98.9 F 60-84 16-20 110-139/44-89 95-99 Exam: Heart Rate-[RRR] Lungs-[clear GI-[+bs soft, NT] Ext-[legs wrapped Neuro [Motor 4/5], [alert and oriented times 3] psych [normal mood and affect] General [no acute distress] Results - Labs CBC & BMP: 03/01/17 03:54 03/01/17 03:54 Lab Results: I have reviewed the past 24 hour labs Labs: Blood cultures 2 negative no growth, urine culture only has 20,000 colony counts of E. coli resistant to Cipro I would not treat. Quality Measures - VTE Contraindication to Mechanical VTE Prophylaxis: Local Inflammation
[2017-03-01] MEDS: ACETAMINOPHEN 325 MG TABLET PO PRN (14:24)
[2017-03-01] MEDS ORDERED: POLYETHYLENE GLYCOL POWDER 17 GM PACK PO SCH (14:30)
[2017-03-01] MEDS ORDERED: POLYETHYLENE GLYCOL POWDER 255 GM BOTTLE PO ONE (15:00)
--- NOTE | 2017-03-01 16:11 | General Surgery Progress Note ---
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 Chronic bilateral lower extremity ulcers in a diabetic patient. She likely has a component of peripheral vascular disease, especially on the right, and in fact this is corroborated with her son who is present. She is followed locally by Dr. Dax Harman in [place] [facility]. They currently have local treatment plan in place with Silvadene, and I do not disagree with this. At this time, there is no gross clinical sign of infection and she is also being treated systemically with clindamycin for pulmonary condition, which should cover any additional organisms present. I think we should continue to focus on her local care, light compression, and elevation, being aware that she likely has a component of underlying arterial insufficiency. Should the areas worsen under our watch, we may consider investigating her circulatory status further, but at this time with her other comorbidities, her sons awareness of her condition and seemingly wariness about making a lot of changes in her care regimen, I feel it safe to just observe her closely for any signs of digression, and only consider intervening or changing her care if we are concerned that she is in fact losing ground. 03/01/17 Bilateral lower extremity wounds, chronic. [place] [facility] has no recent lower arterial vascular studies. I am still suspicious that she has some inflow deficit, unfortunately, her creatinine is 2, so we can't easily look at CTA for evaluation. Her wounds have a great deal of slough present and could stand debridement. I've discussed this with the patient and her son, as well as with Dr Foley. We will have Dr Cesar assess these early tomorrow. We will hold her NPO in the morning so that we can hopefully debride these tomorrow if he agrees. Current Visit: Yes (2) Peripheral vascular disease in diabetes mellitus Status: Acute Current Visit: No Subjective Patient reports: Present: pain is less, other (Shortness of breath is better.) Exam - Constitutional Vitals: Period Temp Pulse Resp BP Sys/Bhatti Pulse Ox Last 24 Hr 97.8 F-98.9 F 60-70 16-20 110-139/44-89 96-100 General appearance: no acute distress, morbidly obese - Respiratory Respiratory exam: Absent: rales, wheezes - Cardiovascular Cardiovascular exam: Present: RRR - GI/Abdominal GI/Abdominal exam: Present: hypoactive bowel sounds, soft - Extremities Exam Extremities exam: Present: other (BLE wrapped; no ischemic skin changes of the distal feet or toes.) - Neurological Exam Neurological exam: Present: alert, oriented X3 Results - Labs CBC & BMP: 03/01/17 03:54 03/01/17 03:54 Lab Results: I have reviewed the past 24 hour labs Quality Measures - VTE Contraindication to Mechanical VTE Prophylaxis: Local Inflammation
[2017-03-02] MEDS: ALBUTEROL/IPRATROPIUM 3 ML NEB RESP TX SCH ×4 (00:42→20:13)
[2017-03-02] MEDS: CLINDAMYCIN INJ 600 MG in PREMIX 1 EACH IV SCH ×2 (02:23→10:31)
[2017-03-02] MEDS: FUROSEMIDE 100 MG/10 ML VIAL IV SCH ×2 (02:24→14:51)
[2017-03-02 03:15] LABS: Basophils % 0.3 % (0.0-0.8); Eosinophils # 1.9 10*3/uL (0.0-0.87); Hematocrit 30.9 VOL% (35.7-47.0); Hemoglobin 10.2 GM/DL (12.0-16.0); Immature Granulocytes % 0.5 %; Immature Granulocytes Absolute 0.06 #; Lymphocytes # 2.7 10*3/uL (1.4-4.0); Lymphocytes % 22.2 % (21.3-54.2); Mean Corpuscular Hemoglobin 27 PG (27-34); Mean Platelet Volume 9.1 FL (9.6-12.0); Monocytes # 0.6 10*3/uL (0.11-0.8); Monocytes % 4.9 % (1.7-12.7); Neutrophils % 57.1 % (38.7-73.9); Platelet Count 333 T/CUMM (130-400); Red Blood Count 3.77 MC/CUMM (3.8-5.5); Red Cell Distribution Width 15.9 % (9.3-17.3); White Blood Count 12.3 T/CUMM (4-12)
[2017-03-02 03:42] LABS: Calcium 8.3 MG/DL (8.5-10.1); Osmolality,Calculated 294.4 MOS/KG (273-304); Potassium 3.6 MMOL/L (3.5-5.1)
[2017-03-02 04:22] LABS: Eosinophils 12 % (0-10); Lymphocytes 12 % (20-55); Segmented Neutrophils 73 % (50-85)
[2017-03-02 04:24] LABS: Hypochromasia 2+; Platelet Estimate Normal; Total Cells Counted 100
[2017-03-02] MEDS: INSULIN REGULAR 100 UNIT/ML SUBCUT SCH ×2 (07:41→15:38)
[2017-03-02] MEDS: metOLazone 2.5 MG TABLET PO SCH (08:07)
[2017-03-02] MEDS: ATORVASTATIN 20 MG TABLET PO SCH (08:07)
[2017-03-02] MEDS: CARVEDILOL 6.25 MG TABLET PO SCH ×2 (08:07→20:19)
[2017-03-02] MEDS: ISOSORBIDE MONONITRATE 30 MG TABLET PO SCH (08:07)
[2017-03-02] MEDS: MAGNESIUM HYDROXIDE SUSP 30 ML UDCUP PO SCH (08:07)
[2017-03-02] MEDS: AMIODARONE 200 MG TABLET PO SCH ×2 (08:07→20:19)
[2017-03-02] MEDS: PANTOPRAZOLE 40 MG TABLET PO SCH (08:07)
[2017-03-02] MEDS: DESITIN 4OZ/NYSTATIN 15 GRAM MIXTURE PASTE TOP SCH ×2 (08:08→20:25)
[2017-03-02] MEDS: SILVER SULFADIAZINE 1% CREAM 25 GM TUBE TOP SCH (08:08)
[2017-03-02] MEDS ORDERED: PROPOFOL 200 MG/20 ML VIAL IV ONE (12:30)
[2017-03-02] MEDS: LACTATED RINGERS 1,000 ML IV SCH (12:30)
[2017-03-02] MEDS ORDERED: BUPIVACAINE 0.25% 50 ML VIAL ONE (12:47)
--- NOTE | 2017-03-02 12:51 | Hospitalist Progress Note ---
Assessment and Plan (1) Acute exacerbation of CHF (congestive heart failure) Status: Acute Assessment and plan: Continue Lasix every 12 hours, recheck bnp Current Visit: Yes (2) Atrial fibrillation Status: Chronic Assessment and plan: controlled with coreg and amiodarone Current Visit: No Qualifiers: Atrial fibrillation type: paroxysmal Qualified Code(s): I48.0 - Paroxysmal atrial fibrillation (3) Insulin dependent diabetes mellitus Status: Chronic Assessment and plan: Blood sugar better today, restart lantus at 20 units tomorrow Current Visit: No (4) HTN (hypertension) Status: Chronic Assessment and plan: controlled Current Visit: No Qualifiers: (5) Chronic kidney disease Status: Acute Assessment and plan: chronic stage 3 Current Visit: Yes (6) Anemia Status: Acute Assessment and plan: cont protonix Current Visit: Yes (7) Open wound of both lower extremities with complication Status: Acute Assessment and plan: Dr. Cesar is debriding her wounds today, change to rocephin and daptomycin, LTACH referral Current Visit: Yes Hospitalist: Subjective Interval history: patient awaiting surgery for debridement, referral to Specialty made for IV abx and wound care Exam - Constitutional Vitals: Period Temp Pulse Resp BP Sys/Bhatti Pulse Ox Last 24 Hr 97.2 F-98.6 F 60-68 16-20 112-154/47-80 94-100 Exam: Heart Rate-[RRR] Lungs-[clear GI-[+bs soft, NT] Ext-[legs wrapped Neuro [Motor 4/5], [alert and oriented times 3] psych [normal mood and affect] General [no acute distress] Results - Labs CBC & BMP: 03/02/17 02:53 03/02/17 02:53 Lab Results: I have reviewed the past 24 hour labs Labs: bc negative no growth Quality Measures - VTE Contraindication to Mechanical VTE Prophylaxis: Local Inflammation
[2017-03-02] MEDS ORDERED: MIDAZOLAM 2 MG/2 ML VIAL ONE (12:59)
[2017-03-02] MEDS ORDERED: KETAMINE 500 MG/10 ML VIAL ONE (13:00)
[2017-03-02] MEDS ORDERED: DEXTROSE 50% 25 GM/50 ML VIAL IV PRN (13:11)
[2017-03-02] MEDS ORDERED: GLUCAGON 1 MG VIAL IM PRN (13:11)
[2017-03-02] MEDS ORDERED: HYDROmorphone 2 MG/1 ML VIAL IV PRN (13:11)
[2017-03-02] MEDS ORDERED: BISACODYL 5 MG TABLET PO PRN (13:11)
--- NOTE | 2017-03-02 13:33 | Operative Note ---
Date of procedure: 03/02/17 Pre-op diagnosis: Multiple ulcers of the lateral aspect of right leg and left heel Post-op diagnosis: same Procedure: Operative note: Preoperative diagnosis: 1. Ulcers of the left heel and arch of the foot possibly secondary to underlying pressure 2. Ulcers multiple lateral aspect of the right leg possibly vascular Procedure: 1. Excisional debridement of left heel medial 2. Excisional debridement of new post left heel ulcer 3. Debridement of ulcer arch of the left foot 4. Excisional debridement of right lateral ulcer proximal 5. Excisional debridement of right lateral mid ulcer 6. Excisional debridement of ulcer right lateral malleolus Surgeon Dr. Cesar Cw Operator Jennifer De La Cruz, LAY[employer] FORMER ACNP Anesthesia was managed anesthetic care with local Brief history: 81-year-old white female who has been in the hospital multiple times with leg ulcers as well as being followed at the [facility] for these ulcers. She has lateral ulcers on the right leg which looks vascular in nature but we can obtain any records of whether not this been evaluated at all. The areas on the left heel region look like there pressure changes from her not wearing her boot and just let the pressure rest on him. Because of the necrotic tissue and sloughing material present we like to bring them down for debridement of these ulcers. Procedure: With patient prepped and draped in sterile fashion timeout and antibiotics completed we approach this area of the wounds themselves. The left heel ulcer pre-debridement is 3 x 2 x 0 cm. Right lateral proximal ulcer pre-debridement is 3 x 2.5 x 0.1 cm. Pre-debridement ulcer of the right lateral mid leg is 2.5 x 1.5 x 0.2 cm.the right lateral malleolus pre-debridement is 1.5 x 1 x 0.1 cm. With that completed in the legs were stiff this time approaches area of the left heel ulcer medial were with scissors pickups and general use of 4 x 4's we were able to debride this loose necrotic looking tissue and slough from the base of this wound bed to get a good clean base at this time. Did go down probably to some fatty tissue in the midportion of the brachial area. The post debridement wound is now 4.9 x 3.9 x 0.2 cm. While looking at this foot more closely we found a new area in the posterior heel area that with debridement with the scissors of the loose skin slough and some necrotic skin were able to get a good clean base it is now 1.5 x 2 cm. With that completed we find a little area on the left arch that we took the scissors and debride the loose skin and necrotic skin and slough from this base until we had a wound now measures 2 x 2.5 cm in size. With that completed we went to the right lower extremity we approach the right lateral proximal ulcer taking a knife to the S and debriding that necrotic and sloughing material little bit tendinous material out of the bottom as well as some necrotic subcutaneous tissue. Once we had a good bed all way around some tissue for cultures then we now have a wound 3.2 x 3.5 x 0.3 cm. At that point we went to the right lateral mid ulcer or we took the knife. Debride the subcutaneous tissue skin slough and some tendinous material in the base. Once that was debrided we now have a wound that is 2.5 x 2.4 x 0.5 cm in size. We next moved to the right lateral malleolus ulcer were with a knife begin to debride the loose skin subcutaneous tissue slough and some tendinous material and fascial tissue in the base. When we finished we had a wound that is 2.2 x 1.9 x 0.3 cm With all that completed we washed everything up for a bulky dressing down to the patient recovery room. Estimated blood loss 15 cc Sponge count correct 2 Drains none Complications none Condition stable satisfactory Anesthesia: MAC, local (0.5% Marcaine plain mixed [id number] 1% Xylocaine plain) Surgeon / Physician: Donta Cesar Cw Operator: Jennifer De La Cruz Estimated blood loss: other (15 cc) Specimens: other (Tissue for cultures) Condition: stable Disposition: floor Results - Labs CBC & BMP: 03/02/17 02:53 03/02/17 02:53 Discharge Plan - Discharge Medications No Action Atorvastatin [Lipitor] 20 mg PO DAILY glipiZIDE [Glipizide] 5 mg PO BID W/MEALS Aspirin EC Tab 81 mg PO DAILY Amiodarone Tab [Cordarone Tab] 200 mg PO BID tablet traZODone [Desyrel] 50 mg PO BEDTIME Cilostazol [Pletal] 50 mg PO BID Multivitamin [Multivitamins] 1 tablet PO DAILY Furosemide Tab [Lasix Tab] 80 mg PO BID #60 tablet Isosorbide Mononitrate [Isosorbide Mononitrate ER] 30 mg PO DAILY Carvedilol [Coreg] 6.25 mg PO BID #60 tablet HYDROcodone/ACETAMIN 7.5-325 [[place] 7.5-325] 7.5 mg PO Q6HR PRN PRN Reason: Pain hydrALAZINE TAB [Apresoline Tab] 50 mg PO BID - Follow Up or Referral - Forms/Instructions
[2017-03-02] MEDS: ENOXAPARIN 30 MG/0.3 ML SYRINGE SUBCUT SCH (13:43)
--- NOTE | 2017-03-02 14:12 | Anesthesia Post-Op ---
Anesthesia Post OP - Post Ansesthetic Evaluation Patient seen in post op: Yes
[2017-03-02] MEDS ORDERED: cefTRIAXone 2,000 MG in SODIUM CHLORIDE 0.9% 100 ML IV SCH (15:00)
[2017-03-02] MEDS: ACETAMINOPHEN 325 MG TABLET PO PRN (16:09)
[2017-03-03] MEDS: ALBUTEROL/IPRATROPIUM 3 ML NEB RESP TX SCH ×3 (00:11→13:42)
[2017-03-03] MEDS: FUROSEMIDE 100 MG/10 ML VIAL IV SCH ×2 (03:01→13:31)
[2017-03-03 05:18] LABS: Basophils # 0.1 10*3/uL (0.0-0.2); Basophils % 0.5 % (0.0-0.8); Eosinophils # 1.6 10*3/uL (0.0-0.87); Eosinophils % 14.3 % (0.00-10.9); Hematocrit 30.9 VOL% (35.7-47.0); Hemoglobin 10.2 GM/DL (12.0-16.0); Immature Granulocytes % 0.5 %; Immature Granulocytes Absolute 0.06 #; Lymphocytes # 2.1 10*3/uL (1.4-4.0); Mean Corpuscular Hemoglobin 27 PG (27-34); Mean Corpuscular Volume 82.6 FL (87-102); Mean Platelet Volume 9.4 FL (9.6-12.0); Monocytes # 0.7 10*3/uL (0.11-0.8); Monocytes % 5.9 % (1.7-12.7); Neutrophils # 6.6 10*3/uL (1.4-7.4); Neutrophils % 59.8 % (38.7-73.9); Platelet Count 324 T/CUMM (130-400); Red Blood Count 3.74 MC/CUMM (3.8-5.5); Red Cell Distribution Width 15.9 % (9.3-17.3); White Blood Count 11.1 T/CUMM (4-12)
[2017-03-03 05:58] LABS: Eosinophils 12 % (0-10); Lymphocytes 32 % (20-55); Platelet Estimate Normal; Segmented Neutrophils 56 % (50-85); Total Cells Counted 100
[2017-03-03 05:59] LABS: Anisocytosis 1+
[2017-03-03 06:01] LABS: Calcium 8.4 MG/DL (8.5-10.1); Osmolality,Calculated 301.3 MOS/KG (273-304); Potassium 3.8 MMOL/L (3.5-5.1)
[2017-03-03] MEDS: INSULIN REGULAR 100 UNIT/ML SUBCUT SCH (08:52)
[2017-03-03] MEDS: AMIODARONE 200 MG TABLET PO SCH (08:53)
[2017-03-03] MEDS: metOLazone 2.5 MG TABLET PO SCH (08:53)
[2017-03-03] MEDS: PANTOPRAZOLE 40 MG TABLET PO SCH (08:53)
[2017-03-03] MEDS: CARVEDILOL 6.25 MG TABLET PO SCH (08:53)
[2017-03-03] MEDS: ISOSORBIDE MONONITRATE 30 MG TABLET PO SCH (08:53)
[2017-03-03] MEDS: ATORVASTATIN 20 MG TABLET PO SCH (08:53)
[2017-03-03] MEDS: MAGNESIUM HYDROXIDE SUSP 30 ML UDCUP PO SCH (08:54)
[2017-03-03] MEDS: DESITIN 4OZ/NYSTATIN 15 GRAM MIXTURE PASTE TOP SCH (09:00)
[2017-03-03] MEDS ORDERED: INSULIN GLARGINE 100 UNIT/ML SUBCUT SCH (09:00)
--- NOTE | 2017-03-03 10:31 | Discharge Summary ---
Hospital Course - Hospital Course Hospital Course: 81-year-old morbidly obese female with a history of insulin-dependent diabetes and CHF presents to the emergency room with complaints of shortness of breath. Patient was noted to have acute systolic and diastolic congestive heart failure with a BNP of 1324. She was aggressively diuresed with Lasix IV in her begin P has dropped to just over 900. Patient's rate is controlled on Coreg and amiodarone. She is not a candidate for anticoagulation due to her history of bleeding. Patient does have chronic anemia and did receive 2 units packed red blood cells during this admission. Her guaiac of her stools however is negative for occult blood. She is currently on Protonix. But would not keep her on that chronically as it will set her up for more frequent pneumonias. She has been rather constipated while here and had to be disimpacted. She has chronic stage III renal failure and several nonhealing wounds on her bilateral lower extremities. Patient sees Dr. Harman over at [facility] about her wounds are not healing due to the fact that she does not make an effort to do anything except sit in her chair all day and have her family weight on her. Her son says she usually does okay when she is in swing bed but as soon as she gets home all she wants to do is sit in her chair and does not want to get up and when she has to go the bathroom. Her EF in May was only approximately 10% percent. Consult Dr. Cesar regarding her bilateral lower extremity wounds and she was taken for debridement of his wounds yesterday. Tissue cultures are pending but she is currently has gram-positive cocci. She is on daptomycin and Rocephin until the tissue cultures are final. Patient had a urine culture that was positive but the UA was not positive and I would not treat that due to low colony count. Cultures have been negative no growth. Dr. Cesar is still very concerned that she has poor perfusion to her lower extremities and needs further vascular workup. We have will be transferring her to LTAC today for further care and treatment including IV antibiotics and physical therapy which she desperately needs. - Time spent with patient Time with patient DS: Greater than 30 minutes (60 min) Diagnosis - Discharge Diagnosis (1) Acute exacerbation of CHF (congestive heart failure) Status: Acute (2) Atrial fibrillation Status: Chronic (3) Insulin dependent diabetes mellitus Status: Chronic (4) HTN (hypertension) Status: Chronic (5) Chronic kidney disease Status: Acute (6) Anemia Status: Acute (7) Open wound of both lower extremities with complication Status: Acute Specialty Discharge - Follow Up or Referrals Discharge Plan - Discharge Data Disposition: Disch/Xfer-[facility] Condition at Discharge: Stable Discharge Diet: diabetic diet Activity: resume usual activities as tolerated Hygiene: no restrictions - Discharge Medications New Albuterol Neb [Proventil Neb] 2.5 mg RESP TX Q4H PRN PRN Reason: Shortness Of Breath/Wheezing Bisacodyl Tab [Dulcolax Tab] 10 mg PO BID PRN tablet PRN Reason: Constipation DAPTOmycin [Cubicin] 500 mg IV Q48H vial Docusate Sodium Cap [Colace Cap] 100 mg PO BID PRN capsule PRN Reason: Constipation Enoxaparin [Lovenox] 30 mg SUBCUT Q24H syringe Furosemide Inj [Lasix Inj] 60 mg IV Q12H vial Insulin Glargine [Lantus] 25 unit SUBCUT DAILY unit Insulin Regular [HumuLIN R] See Protocol SUBCUT BIDAC unit Magnesium Hydroxide Susp [Milk of Magnesia] 30 ml PO DAILY metOLazone [Zaroxolyn] 2.5 mg PO DAILY tablet Ondansetron Inj [Zofran Inj] 4 mg IV Q4H PRN vial PRN Reason: Nausea Pantoprazole Tab [Protonix Tab] 40 mg PO DAILY tablet Silver Sulfadiazine 1% Cream [Silvadene 1% Cream] 1 applic TOP DAILY applic Acetaminophen Tab [Tylenol Tab] 650 mg PO Q4H PRN tablet PRN Reason: Fever, Headache, Mild Pain ALPRAZolam [Xanax] 0.5 mg PO Q12HR PRN tablet PRN Reason: Anxiety cefTRIAXone [Rocephin] 2,000 mg IV Q24H vial Dextrose 50% [D50] 25 gm IV PRN PRN vial PRN Reason: Hypoglycemia with IV access Dextrose 50% [D50] 25 gm IV PRN PRN vial PRN Reason: Hypoglycemia with IV access Glucagon 1 mg IM PRN PRN vial PRN Reason: Hypoglycemia w/o IV access Zaleplon [Sonata] 5 mg PO BEDTIME PRN capsule PRN Reason: Insomnia Continue Atorvastatin [Lipitor] 20 mg PO DAILY Aspirin EC Tab 81 mg PO DAILY Amiodarone Tab [Cordarone Tab] 200 mg PO BID tablet Cilostazol [Pletal] 50 mg PO BID Multivitamin [Multivitamins] 1 tablet PO DAILY Isosorbide Mononitrate [Isosorbide Mononitrate ER] 30 mg PO DAILY Carvedilol [Coreg] 6.25 mg PO BID #60 tablet HYDROcodone/ACETAMIN 7.5-325 [[place] 7.5-325] 7.5 mg PO Q6HR PRN PRN Reason: Pain hydrALAZINE TAB [Apresoline Tab] 50 mg PO BID Discontinued glipiZIDE [Glipizide] 5 mg PO BID W/MEALS traZODone [Desyrel] 50 mg PO BEDTIME Furosemide Tab [Lasix Tab] 80 mg PO BID #60 tablet - Follow Up or Referral - Forms/Instructions Instructions: Mitral Regurgitation (DC), Diabetic Foot Care (DC) Exam - Constitutional Vitals: Period Temp Pulse Resp BP Sys/Bhatti Pulse Ox Last 24 Hr 97.2 F-98.6 F 60-72 16-20 105-174/50-76 93-100 General appearance: no acute distress, morbidly obese - Respiratory Respiratory exam: Present: decreased breath sounds. Absent: rhonchi, wheezes - Cardiovascular Cardiovascular exam: Present: regular rate and rhythm. Absent: systolic murmur - GI/Abdominal GI/Abdominal exam: Present: normal bowel sounds, soft. Absent: tenderness - Extremities Exam Extremities exam: Present: normal capillary refill, edema - Neurological Exam Neurological exam: Present: alert, oriented X3 - Psychiatric Psychiatric exam: Present: normal affect, normal mood Discharge Results Procedures and tests throughout hospitalization: Pending Orders 02/26/17 16:48 Blood Culture Stat 03/02/17 Tissue (Biopsy) Culture and GS Routine 03/03/17 02:08 Occult Blood, Stool Stat Labs on day of discharge: Labs from last 24 hours 03/03/17 03/03/17 03/03/17 07:27 04:58 04:58 WBC 11.1 RBC 3.74 L Hgb 10.2 L Hct 30.9 L MCV 82.6 L MCH 27 MCHC 33.0 RDW 15.9 Plt Count 324 MPV 9.4 L Neut % (Auto) 59.8 Lymph % (Auto) 19.0 L Nye % (Auto) 5.9 Eos % (Auto) 14.3 H Baso % (Auto) 0.5 Neut # (Auto) 6.6 Lymph # (Auto) 2.1 Nye # (Auto) 0.7 Eos # (Auto) 1.6 H Baso # (Auto) 0.1 Total Counted 100 Immature Gran % 0.5 Nucleated RBC % 0.0 Immature Gran # 0.06 Segmented Neutrophils 56 Lymphocytes 32 Eosinophils 12 H Nucleated RBCs # 0.00 Platelet Estimate Normal Anisocytosis 1+ Sodium 141 Potassium 3.8 Chloride 94 L Carbon Dioxide 40 H Anion Gap 10.8 BUN 50 H Creatinine 2.50 H GFR Calculation 22 BUN/Creatinine Ratio 20.00 Glucose 236 H POC Glucose 247 H Calculated Osmolality 301.3 Calcium 8.4 L B-Natriuretic Peptide 03/02/17 03/02/17 03/02/17 20:29 15:19 13:37 WBC RBC Hgb Hct MCV MCH MCHC RDW Plt Count MPV Neut % (Auto) Lymph % (Auto) Nye % (Auto) Eos % (Auto) Baso % (Auto) Neut # (Auto) Lymph # (Auto) Nye # (Auto) Eos # (Auto) Baso # (Auto) Total Counted Immature Gran % Nucleated RBC % Immature Gran # Segmented Neutrophils Lymphocytes Eosinophils Nucleated RBCs # Platelet Estimate Anisocytosis Sodium Potassium Chloride Carbon Dioxide Anion Gap BUN Creatinine GFR Calculation BUN/Creatinine Ratio Glucose POC Glucose 254 H 196 H Calculated Osmolality Calcium B-Natriuretic Peptide 975 H 03/02/17 11:04 WBC RBC Hgb Hct MCV MCH MCHC RDW Plt Count MPV Neut % (Auto) Lymph % (Auto) Nye % (Auto) Eos % (Auto) Baso % (Auto) Neut # (Auto) Lymph # (Auto) Nye # (Auto) Eos # (Auto) Baso # (Auto) Total Counted Immature Gran % Nucleated RBC % Immature Gran # Segmented Neutrophils Lymphocytes Eosinophils Nucleated RBCs # Platelet Estimate Anisocytosis Sodium Potassium Chloride Carbon Dioxide Anion Gap BUN Creatinine GFR Calculation BUN/Creatinine Ratio Glucose POC Glucose 172 H Calculated Osmolality Calcium B-Natriuretic Peptide Preliminary micro results at discharge 03/02/17 Unknown Tissue Culture - Preliminary Leg - Left Gram Positive Cocci 02/26/17 16:48 Blood Culture - Preliminary Blood No growth at 3 days 02/26/17 16:29 Blood Culture - Preliminary Blood No growth at 3 days DS: Provider Date of admission: 02/26/17 17:16 Primary care physician: . No PCP Attending physician on admission: Dank Alamo MD Consults: 02/26/17 19:00 Consult to Occupational Therapy [CONS] Routine Reason for Occupational Therapy: Evaluate and Treat Consult to Physical Therapy [CONS] Routine Reason for Physical Therapy: Evaluate and Treat Consult to Wound Care - North [CONS] Routine Reason for Wound Care: Wound Care Management Consult Comment: Bilateral leg wounds 02/28/17 10:27 Consult to Physician [CONS] Routine Comment: wounds to BLE Consulting Provider: Donta Cesar Person Notified: Dr. Cesar Date Notified: 02/28/17 Time Notified: 10:30 03/01/17 09:19 Consult to Case Mgmt/Social Srvs [CONS] Routine Reason for Case Mgmt/Social Srvs: Home Health Consult Comment: nurse, aide and pt, need new manual wheelchair 03/01/17 14:01 Consult to Case Mgmt/Social Srvs [CONS] Routine Reason for Case Mgmt/Social Srvs: LTAC Consult Comment: speciality, lift chair for home, lift for home 03/02/17 07:49 Consult to Anesthesiology [CONS] Routine Consulting Provider: Reason for Anesthesiology: Pre-op Clearance Consult Comment: Pt needs LMA;sameera leg wounds; very tender Discharging clinician: Lizett Foley MD
[2017-03-03 11:04] VITALS: BP 150/73
--- NOTE | 2017-03-03 11:23 | General Surgery Progress Note ---
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 Chronic bilateral lower extremity ulcers in a diabetic patient. She likely has a component of peripheral vascular disease, especially on the right, and in fact this is corroborated with her son who is present. She is followed locally by Dr. Dax Harman in [facility]. They currently have local treatment plan in place with Silvadene, and I do not disagree with this. At this time, there is no gross clinical sign of infection and she is also being treated systemically with clindamycin for pulmonary condition, which should cover any additional organisms present. I think we should continue to focus on her local care, light compression, and elevation, being aware that she likely has a component of underlying arterial insufficiency. Should the areas worsen under our watch, we may consider investigating her circulatory status further, but at this time with her other comorbidities, her sons awareness of her condition and seemingly wariness about making a lot of changes in her care regimen, I feel it safe to just observe her closely for any signs of digression, and only consider intervening or changing her care if we are concerned that she is in fact losing ground. 03/01/17 Bilateral lower extremity wounds, chronic. [facility] has no recent lower arterial vascular studies. I am still suspicious that she has some inflow deficit, unfortunately, her creatinine is 2, so we can't easily look at CTA for evaluation. Her wounds have a great deal of slough present and could stand debridement. I've discussed this with the patient and her son, as well as with Dr Foley. We will have Dr Cesar assess these early tomorrow. We will hold her NPO in the morning so that we can hopefully debride these tomorrow if he agrees. Since 03/16/2017. Stable postop debridement of bilateral lower extremity wounds. She is to be transferred to specialty Hospital for continued IV antibiotics and wound care. We will plan to forward her postop cultures once they are available. I have rewritten her wound care orders for collagen product , which should enhance her wound healing. The right lateral lower leg ulcers do have some telltale signs that suggest this may be arterial compromise, but overall the wounds have granulating tissue present that collagen may help stimulate healing. She does need vigilant offloading and in addition to good overall disease management, we recommend a good vascular workup to rule out any underlying deep arterial compromise. She will follow up as outpatient with Dr. Harman at [facility] Current Visit: Yes (2) Peripheral vascular disease in diabetes mellitus Status: Acute Current Visit: No Subjective Patient reports: Present: other Exam - Constitutional Vitals: Period Temp Pulse Resp BP Sys/Bhatti Pulse Ox Last 24 Hr 97.2 F-98.6 F 60-72 16-20 105-174/50-76 93-100 General appearance: no acute distress (Very little postop), morbidly obese - Extremities Exam Extremities exam: Present: other (Lower extremity postop dressings are clean and dry. Toes are warm and well perfused.) Results - Labs CBC & BMP: 03/03/17 04:58 03/03/17 04:58 Lab Results: I have reviewed the past 24 hour labs (Postop labs are stable) Quality Measures - VTE Contraindication to Mechanical VTE Prophylaxis: Local Inflammation Specialty Discharge - Follow Up or Referrals
[2017-03-03] MEDS: SILVER SULFADIAZINE 1% CREAM 25 GM TUBE TOP SCH (12:20)
[2017-03-03] MEDS: ENOXAPARIN 30 MG/0.3 ML SYRINGE SUBCUT SCH (13:30)
[2017-03-03] MEDS: LACTATED RINGERS 1,000 ML IV SCH (13:30)
== END 2017-03-03 14:50 | DRG 264 ==
LOC: N.ED 15:06 → SUATTDRO 17:16 → N.EDINP 17:16 → N.5E 18:19
PROVIDERS: ADMIT Family Medicine; ATTEND Internal Medicine

== ENCOUNTER 2017-06-27 09:46 | Inpatient (IN) ==
[2017-06-27] MEDS ORDERED: DEXTROSE 50% 25 GM/50 ML VIAL IV STA (10:05)
[2017-06-27 10:15] LABS: Basophils # 0.1 10*3/uL (0.0-0.2); Basophils % 0.4 % (0.0-0.8); Eosinophils # 1.4 10*3/uL (0.0-0.87); Eosinophils % 10.8 % (0.00-10.9); Hematocrit 30.4 VOL% (35.7-47.0); Hemoglobin 9.7 GM/DL (12.0-16.0); Immature Granulocytes % 0.6 %; Immature Granulocytes Absolute 0.07 #; Lymphocytes # 2.3 10*3/uL (1.4-4.0); Lymphocytes % 18.7 % (21.3-54.2); Mean Corpuscular HGB Conc 31.9 GM/DL (32-36); Mean Corpuscular Hemoglobin 28 PG (27-34); Mean Corpuscular Volume 86.4 FL (87-102); Mean Platelet Volume 10.7 FL (9.6-12.0); Monocytes # 0.8 10*3/uL (0.11-0.8); Neutrophils # 7.9 10*3/uL (1.4-7.4); Neutrophils % 63.5 % (38.7-73.9); Platelet Count 283 T/CUMM (130-400); Red Blood Count 3.52 MC/CUMM (3.8-5.5); White Blood Count 12.5 T/CUMM (4-12)
[2017-06-27] MEDS ORDERED: DEXTROSE 50% 25 GM/50 ML SYRINGE IV ONE (10:20)
[2017-06-27] MEDS ORDERED: DEXTROSE 5% NACL 0.45% 1,000 ML IV SCH (10:30)
[2017-06-27 10:47] LABS: Alanine Aminotransferase 40 U/L (13-56); Albumin 2.3 G/DL (3.4-5.0); Alkaline Phosphatase 108 U/L (45-117); Aspartate Amino Transferase 49 U/L (0-37); Bilirubin,Total < 0.39 MG/DL (0.2-1.0); Blood Urea Nitrogen 34 MG/DL (7-18); Calcium 7.8 MG/DL (8.5-10.1); Osmolality,Calculated 281.5 MOS/KG (273-304); Potassium 4.5 MMOL/L (3.5-5.1); Sodium 139 MMOL/L (136-145); Total Protein 6.1 G/DL (6.4-8.3); Troponin I Only 0.029 NG/ML (0.00-0.045)
[2017-06-27 10:48] LABS: Glucose 37 MG/DL (74-106)
[2017-06-27] MEDS ORDERED: diphenhydrAMINE CAP 25 MG CAPSULE PO PRN (12:25)
[2017-06-27] MEDS ORDERED: ONDANSETRON 4 MG/2 ML VIAL IV PRN (12:25)
[2017-06-27] MEDS ORDERED: ACETAMINOPHEN 325 MG TABLET PO PRN (12:25)
[2017-06-27] MEDS ORDERED: guaiFENesin/DM ER 600-30 MG TABLET PO PRN (12:25)
[2017-06-27] MEDS ORDERED: DOCUSATE SODIUM 100 MG CAPSULE PO PRN (12:25)
[2017-06-27] MEDS ORDERED: DEXTROSE 10% 1,000 ML IV SCH (12:30)
[2017-06-27] MEDS ORDERED: ONDANSETRON ODT 4 MG TABLET PO PRN (12:33)
[2017-06-27] MEDS ORDERED: MAGNESIUM CITRATE 300 ML BOTTLE PO SCH (13:00)
[2017-06-27] MEDS ORDERED: hydrOXYzine HCL 10 MG TABLET PO PRN (15:30)
[2017-06-27] MEDS: CARVEDILOL 12.5 MG TABLET PO SCH ×2 (15:44→21:22)
[2017-06-27] MEDS: AMIODARONE 200 MG TABLET PO SCH ×2 (15:44→21:21)
[2017-06-27] MEDS: CILOSTAZOL 50 MG TABLET PO SCH ×2 (15:44→21:21)
[2017-06-27] MEDS: FUROSEMIDE 80 MG TABLET PO SCH (15:50)
[2017-06-27] MEDS: ENOXAPARIN 30 MG/0.3 ML SYRINGE SUBCUT SCH (15:50)
[2017-06-27] MEDS: CIPROFLOXACIN 500 MG TABLET PO SCH ×2 (15:50→21:22)
[2017-06-27] MEDS: ATORVASTATIN 20 MG TABLET PO SCH (15:50)
[2017-06-27] MEDS: PANTOPRAZOLE 40 MG TABLET PO SCH (15:50)
[2017-06-27] MEDS: ASPIRIN EC 81 MG TABLET PO SCH (15:50)
[2017-06-27] MEDS: MULTIVITAMIN (CENTRUM) TABLET PO SCH (15:50)
[2017-06-27] MEDS ORDERED: ZINC OXIDE PASTE 113 GM TUBE TOP PRN (16:18)
[2017-06-27] MEDS: ACETAMINOPHEN 325 MG TABLET PO PRN (23:22)
[2017-06-28] MEDS: DEXTROSE 10% 500 ML IV SCH ×3 (01:05→21:32)
[2017-06-28] MEDS: DEXTROSE 50% 25 GM/50 ML VIAL IV PRN ×2 (01:56→10:28)
[2017-06-28] MEDS: ACETAMINOPHEN 325 MG TABLET PO PRN ×2 (05:08→08:42)
[2017-06-28 06:56] LABS: Basophils # 0.1 10*3/uL (0.0-0.2); Basophils % 0.5 % (0.0-0.8); Eosinophils # 1.7 10*3/uL (0.0-0.87); Eosinophils % 15.8 % (0.00-10.9); Hematocrit 28.9 VOL% (35.7-47.0); Hemoglobin 9.2 GM/DL (12.0-16.0); Immature Granulocytes % 0.3 %; Immature Granulocytes Absolute 0.03 #; Lymphocytes % 18.6 % (21.3-54.2); Mean Corpuscular HGB Conc 31.8 GM/DL (32-36); Mean Corpuscular Hemoglobin 28 PG (27-34); Mean Corpuscular Volume 86.5 FL (87-102); Mean Platelet Volume 10.8 FL (9.6-12.0); Monocytes # 0.8 10*3/uL (0.11-0.8); Monocytes % 7.6 % (1.7-12.7); Neutrophils # 6.1 10*3/uL (1.4-7.4); Neutrophils % 57.2 % (38.7-73.9); Platelet Count 265 T/CUMM (130-400); Red Blood Count 3.34 MC/CUMM (3.8-5.5); Red Cell Distribution Width 16.9 % (9.3-17.3); White Blood Count 10.7 T/CUMM (4-12)
[2017-06-28 07:23] LABS: Eosinophils 14 % (0-10); Hypochromasia 1+; Lymphocytes 18 % (20-55); Segmented Neutrophils 64 % (50-85); Total Cells Counted 100
[2017-06-28 07:24] LABS: Microcytosis 1+
[2017-06-28 07:25] LABS: Platelet Estimate Normal
[2017-06-28 07:27] LABS: Alanine Aminotransferase 37 U/L (13-56); Albumin 2.1 G/DL (3.4-5.0); Alkaline Phosphatase 85 U/L (45-117); Aspartate Amino Transferase 42 U/L (0-37); Bilirubin,Total < 0.39 MG/DL (0.2-1.0); Blood Urea Nitrogen 36 MG/DL (7-18); Calcium 7.5 MG/DL (8.5-10.1); Glucose 43 MG/DL (74-106); Magnesium 2.8 MG/DL (1.8-2.4); Osmolality,Calculated 281.5 MOS/KG (273-304); Potassium 4.9 MMOL/L (3.5-5.1); Sodium 139 MMOL/L (136-145); Total Protein 5.7 G/DL (6.4-8.3)
[2017-06-28] MEDS: FUROSEMIDE 80 MG TABLET PO SCH (08:42)
[2017-06-28] MEDS: CILOSTAZOL 50 MG TABLET PO SCH ×2 (08:42→20:27)
[2017-06-28] MEDS: ASPIRIN EC 81 MG TABLET PO SCH (08:43)
[2017-06-28] MEDS: CARVEDILOL 12.5 MG TABLET PO SCH ×2 (08:43→20:27)
[2017-06-28] MEDS: ATORVASTATIN 20 MG TABLET PO SCH (08:43)
[2017-06-28] MEDS: CIPROFLOXACIN 500 MG TABLET PO SCH (08:43)
[2017-06-28] MEDS: AMIODARONE 200 MG TABLET PO SCH ×2 (08:43→20:27)
[2017-06-28] MEDS: MULTIVITAMIN (CENTRUM) TABLET PO SCH (08:43)
[2017-06-28] MEDS: PANTOPRAZOLE 40 MG TABLET PO SCH (08:43)
[2017-06-28] MEDS: ENOXAPARIN 30 MG/0.3 ML SYRINGE SUBCUT SCH (12:41)
[2017-06-28] MEDS ORDERED: DEXTROSE 10% 1,000 ML IV SCH (13:00)
[2017-06-28] MEDS: SKIN HEALING OINT (AQUAPHOR) 50 GM TUBE TOP SCH (16:18)
[2017-06-28] MEDS: GENTAMICIN 0.1% CREAM 15 GM TUBE TOP SCH (16:18)
[2017-06-29] MEDS: DEXTROSE 10% 500 ML IV SCH ×3 (02:35→16:34)
[2017-06-29 06:27] LABS: Basophils % 0.4 % (0.0-0.8); Eosinophils % 18.4 % (0.00-10.9); Hematocrit 29.6 VOL% (35.7-47.0); Hemoglobin 9.3 GM/DL (12.0-16.0); Immature Granulocytes % 0.4 %; Immature Granulocytes Absolute 0.04 #; Lymphocytes # 2.1 10*3/uL (1.4-4.0); Lymphocytes % 19.6 % (21.3-54.2); Mean Corpuscular HGB Conc 31.4 GM/DL (32-36); Mean Corpuscular Hemoglobin 27 PG (27-34); Mean Platelet Volume 11.1 FL (9.6-12.0); Monocytes # 0.9 10*3/uL (0.11-0.8); Monocytes % 8.1 % (1.7-12.7); Neutrophils # 5.8 10*3/uL (1.4-7.4); Neutrophils % 53.1 % (38.7-73.9); Platelet Count 220 T/CUMM (130-400); Red Blood Count 3.44 MC/CUMM (3.8-5.5); Red Cell Distribution Width 16.9 % (9.3-17.3); White Blood Count 10.9 T/CUMM (4-12)
[2017-06-29 06:54] LABS: Eosinophils 28 % (0-10); Giant Platelets Few; Hypochromasia 1+; Lymphocytes 14 % (20-55); Microcytosis 1+; Ovalocytes Slight; Platelet Estimate Adequate; Segmented Neutrophils 54 % (50-85); Total Cells Counted 100
[2017-06-29 07:02] LABS: Calcium 7.5 MG/DL (8.5-10.1); Osmolality,Calculated 281.1 MOS/KG (273-304); Potassium 4.7 MMOL/L (3.5-5.1)
[2017-06-29] MEDS: PANTOPRAZOLE 40 MG TABLET PO SCH (10:01)
[2017-06-29] MEDS: CARVEDILOL 12.5 MG TABLET PO SCH ×2 (10:01→21:09)
[2017-06-29] MEDS: CILOSTAZOL 50 MG TABLET PO SCH ×2 (10:01→21:09)
[2017-06-29] MEDS: MULTIVITAMIN (CENTRUM) TABLET PO SCH (10:01)
[2017-06-29] MEDS: ATORVASTATIN 20 MG TABLET PO SCH (10:01)
[2017-06-29] MEDS: AMIODARONE 200 MG TABLET PO SCH ×2 (10:01→21:09)
[2017-06-29] MEDS: ISOSORBIDE MONONITRATE 30 MG TABLET PO SCH (10:01)
[2017-06-29] MEDS: ASPIRIN EC 81 MG TABLET PO SCH (10:01)
[2017-06-29] MEDS: FUROSEMIDE 80 MG TABLET PO SCH (10:02)
[2017-06-29] MEDS: SKIN HEALING OINT (AQUAPHOR) 50 GM TUBE TOP SCH (10:03)
[2017-06-29] MEDS: GENTAMICIN 0.1% CREAM 15 GM TUBE TOP SCH (10:03)
[2017-06-29] MEDS ORDERED: FUROSEMIDE 40 MG/4 ML VIAL IV ONE (11:35)
[2017-06-29] MEDS: ENOXAPARIN 30 MG/0.3 ML SYRINGE SUBCUT SCH (11:54)
[2017-06-30] MEDS: CILOSTAZOL 50 MG TABLET PO SCH ×2 (09:50→21:38)
[2017-06-30] MEDS: ATORVASTATIN 20 MG TABLET PO SCH (09:50)
[2017-06-30] MEDS: MULTIVITAMIN (CENTRUM) TABLET PO SCH (09:50)
[2017-06-30] MEDS: PANTOPRAZOLE 40 MG TABLET PO SCH (09:51)
[2017-06-30] MEDS: ASPIRIN EC 81 MG TABLET PO SCH (09:51)
[2017-06-30] MEDS: FUROSEMIDE 80 MG TABLET PO SCH (09:51)
[2017-06-30] MEDS: ISOSORBIDE MONONITRATE 30 MG TABLET PO SCH (09:51)
[2017-06-30] MEDS: AMIODARONE 200 MG TABLET PO SCH ×2 (09:51→21:38)
[2017-06-30] MEDS: CARVEDILOL 12.5 MG TABLET PO SCH ×2 (09:52→21:38)
[2017-06-30] MEDS: SKIN HEALING OINT (AQUAPHOR) 50 GM TUBE TOP SCH (10:46)
[2017-06-30] MEDS: GENTAMICIN 0.1% CREAM 15 GM TUBE TOP SCH (10:46)
[2017-06-30] MEDS: ENOXAPARIN 30 MG/0.3 ML SYRINGE SUBCUT SCH (11:42)
[2017-06-30] MEDS: BISACODYL 5 MG TABLET PO SCH (17:34)
[2017-06-30] MEDS: COLLAGENASE OINT 30 GM TUBE TOP SCH (17:34)
[2017-07-01 06:31] LABS: Calcium 7.7 MG/DL (8.5-10.1); Osmolality,Calculated 288.8 MOS/KG (273-304); Potassium 4.7 MMOL/L (3.5-5.1)
[2017-07-01] MEDS: MULTIVITAMIN (CENTRUM) TABLET PO SCH (10:11)
[2017-07-01] MEDS: CILOSTAZOL 50 MG TABLET PO SCH (10:11)
[2017-07-01] MEDS: FUROSEMIDE 80 MG TABLET PO SCH (10:12)
[2017-07-01] MEDS: ATORVASTATIN 20 MG TABLET PO SCH (10:12)
[2017-07-01] MEDS: AMIODARONE 200 MG TABLET PO SCH (10:12)
[2017-07-01] MEDS: PANTOPRAZOLE 40 MG TABLET PO SCH (10:12)
[2017-07-01] MEDS: ISOSORBIDE MONONITRATE 30 MG TABLET PO SCH (10:12)
[2017-07-01] MEDS: CARVEDILOL 12.5 MG TABLET PO SCH (10:12)
[2017-07-01] MEDS: ASPIRIN EC 81 MG TABLET PO SCH (10:12)
[2017-07-01] MEDS: BISACODYL 5 MG TABLET PO SCH (10:12)
[2017-07-01] MEDS: COLLAGENASE OINT 30 GM TUBE TOP SCH (10:13)
[2017-07-01] MEDS: GENTAMICIN 0.1% CREAM 15 GM TUBE TOP SCH (10:14)
[2017-07-01] MEDS: SKIN HEALING OINT (AQUAPHOR) 50 GM TUBE TOP SCH (10:14)
[2017-07-01] MEDS ORDERED: METHYLNALTREXONE 12 MG/0.6 ML VIAL SUBCUT ONE ×2 (11:30→14:30)
[2017-07-01] MEDS ORDERED: INFLUENZA VIRUS VACCINE 0.5 ML SYRINGE IM ONE (16:59)
[2017-07-01] MEDS: ENOXAPARIN 30 MG/0.3 ML SYRINGE SUBCUT SCH (17:10)
[2017-07-01 20:52] VITALS: BP 125/60
== END 2017-07-01 17:10 | disposition home health service (06) | DRG 291 ==
LOC: EDUNIT# → EDBD → N.ED 09:46 → N.EDINP 12:25 → SUATTDRO 12:28 → N.EDINP 14:18 → N.5E 15:12
PROVIDERS: ADMIT Internal Medicine; ATTEND Internal Medicine

== ENCOUNTER 2017-08-14 16:43 | Inpatient (IN) ==
[2017-08-14 18:33] LABS: Basophils # 0.1 10*3/uL (0.0-0.2); Basophils % 0.5 % (0.0-0.8); Eosinophils # 1.3 10*3/uL (0.0-0.87); Eosinophils % 9.7 % (0.00-10.9); Hematocrit 30.6 VOL% (35.7-47.0); Hemoglobin 9.5 GM/DL (12.0-16.0); Immature Granulocytes % 0.4 %; Immature Granulocytes Absolute 0.05 #; Lymphocytes # 3.4 10*3/uL (1.4-4.0); Mean Corpuscular Hemoglobin 27 PG (27-34); Mean Corpuscular Volume 88.2 FL (87-102); Monocytes # 0.6 10*3/uL (0.11-0.8); Monocytes % 4.3 % (1.7-12.7); Neutrophils # 7.7 10*3/uL (1.4-7.4); Neutrophils % 59.1 % (38.7-73.9); Platelet Count 336 T/CUMM (130-400); Red Blood Count 3.47 MC/CUMM (3.8-5.5); Red Cell Distribution Width 20.3 % (9.3-17.3); White Blood Count 12.9 T/CUMM (4-12)
[2017-08-14 18:42] LABS: INR 1.1; PT Patient Result 11.7 SECS
[2017-08-14 18:53] LABS: Albumin 2.4 G/DL (3.4-5.0); Bilirubin,Total 0.4 MG/DL (0.2-1.0); Calcium 7.9 MG/DL (8.5-10.1); Magnesium 2.3 MG/DL (1.8-2.4); Potassium 3.1 MMOL/L (3.5-5.1)
[2017-08-14 19:03] LABS: Troponin I Only 0.051 NG/ML (0.00-0.045)
[2017-08-14] MEDS ORDERED: FUROSEMIDE 40 MG/4 ML VIAL IV STA (19:55)
[2017-08-14] MEDS ORDERED: FUROSEMIDE 40 MG/4 ML VIAL ONE (20:18)
[2017-08-14] MEDS ORDERED: DEXTROSE 50% 25 GM/50 ML VIAL IV PRN (20:51)
[2017-08-14] MEDS ORDERED: ACETAMINOPHEN 325 MG TABLET PO PRN (20:51)
[2017-08-14] MEDS ORDERED: MAGNESIUM SULF RIDER 4 GM in PREMIX 1 EACH IV PRN (20:51)
[2017-08-14] MEDS ORDERED: ZALEPLON 5 MG CAPSULE PO PRN (20:51)
[2017-08-14] MEDS ORDERED: GLUCAGON 1 MG VIAL IM PRN (20:51)
[2017-08-14] MEDS ORDERED: ONDANSETRON 4 MG/2 ML VIAL IV PRN (20:51)
[2017-08-14] MEDS ORDERED: MAGNESIUM SULF RIDER 2 GM in PREMIX 1 EACH IV PRN (20:51)
[2017-08-14] MEDS ORDERED: IPRATROPIUM 500 MCG/2.5 ML NEB RESP TX PRN (21:00)
[2017-08-14] MEDS: AMIODARONE 200 MG TABLET PO SCH (23:12)
[2017-08-14] MEDS: CARVEDILOL 12.5 MG TABLET PO SCH (23:12)
[2017-08-14] MEDS: CILOSTAZOL 50 MG TABLET PO SCH (23:12)
[2017-08-14] MEDS: ENOXAPARIN 30 MG/0.3 ML SYRINGE SUBCUT SCH (23:12)
[2017-08-14] MEDS: CEFUROXIME 250 MG TABLET PO SCH (23:20)
[2017-08-14] MEDS: HYDROCORTISONE 10 MG TABLET PO SCH (23:20)
[2017-08-15 03:16] LABS: Basophils % 0.4 % (0.0-0.8); Eosinophils # 1.1 10*3/uL (0.0-0.87); Hematocrit 25.6 VOL% (35.7-47.0); Hemoglobin 8.2 GM/DL (12.0-16.0); Immature Granulocytes % 0.4 %; Immature Granulocytes Absolute 0.04 #; Lymphocytes # 2.2 10*3/uL (1.4-4.0); Lymphocytes % 22.1 % (21.3-54.2); Mean Corpuscular Hemoglobin 28 PG (27-34); Mean Corpuscular Volume 85.9 FL (87-102); Mean Platelet Volume 10.7 FL (9.6-12.0); Monocytes # 0.7 10*3/uL (0.11-0.8); Monocytes % 6.9 % (1.7-12.7); Neutrophils # 5.9 10*3/uL (1.4-7.4); Neutrophils % 59.2 % (38.7-73.9); Platelet Count 279 T/CUMM (130-400); Red Blood Count 2.98 MC/CUMM (3.8-5.5); Red Cell Distribution Width 20.1 % (9.3-17.3)
[2017-08-15 03:45] LABS: Albumin 2.1 G/DL (3.4-5.0); Bilirubin,Total 0.9 MG/DL (0.2-1.0); Osmolality,Calculated 300.7 MOS/KG (273-304); Total Protein 5.8 G/DL (6.4-8.3)
[2017-08-15 04:02] LABS: Band Neutrophils 6 % (0-10); Eosinophils 17 % (0-10); Lymphocytes 17 % (20-55); Segmented Neutrophils 59 % (50-85); Total Cells Counted 100
[2017-08-15 04:04] LABS: Anisocytosis 1+; Poikilocytosis 1+; Polychromasia 1+
[2017-08-15 04:05] LABS: Target Cells Slight
[2017-08-15] MEDS: MULTIVITAMIN (CENTRUM) TABLET PO SCH (09:25)
[2017-08-15] MEDS: HYDROCORTISONE 10 MG TABLET PO SCH ×2 (09:25→21:57)
[2017-08-15] MEDS: CILOSTAZOL 50 MG TABLET PO SCH ×2 (09:25→21:57)
[2017-08-15] MEDS: FUROSEMIDE 40 MG/4 ML VIAL IV SCH ×2 (09:25→16:39)
[2017-08-15] MEDS: ASPIRIN EC 81 MG TABLET PO SCH (09:26)
[2017-08-15] MEDS: CEFUROXIME 250 MG TABLET PO SCH ×2 (09:26→21:56)
[2017-08-15] MEDS: ATORVASTATIN 20 MG TABLET PO SCH (09:26)
[2017-08-15] MEDS: AMIODARONE 200 MG TABLET PO SCH ×2 (09:26→21:56)
[2017-08-15] MEDS: PANTOPRAZOLE 40 MG TABLET PO SCH (09:26)
[2017-08-15] MEDS: CARVEDILOL 12.5 MG TABLET PO SCH ×2 (09:27→21:57)
[2017-08-15] MEDS: ISOSORBIDE MONONITRATE 30 MG TABLET PO SCH (09:27)
[2017-08-15] MEDS: GENTAMICIN 0.1% CREAM 15 GM TUBE TOP SCH (10:24)
[2017-08-15] MEDS ORDERED: POTASSIUM CHLORIDE 20 MEQ TABLET PO PRN (10:43)
[2017-08-15] MEDS ORDERED: ZINC OXIDE PASTE 113 GM TUBE TOP PRN (10:55)
[2017-08-15] MEDS: ACETIC ACID 0.25% IRRIGATION 1,000 ML BOTTLE IRRIG SCH (13:51)
[2017-08-15] MEDS: ENOXAPARIN 30 MG/0.3 ML SYRINGE SUBCUT SCH (21:57)
[2017-08-16 05:34] LABS: Basophils % 0.5 % (0.0-0.8); Eosinophils # 1.1 10*3/uL (0.0-0.87); Eosinophils % 12.7 % (0.00-10.9); Hematocrit 24.9 VOL% (35.7-47.0); Hemoglobin 7.7 GM/DL (12.0-16.0); Immature Granulocytes % 0.5 %; Immature Granulocytes Absolute 0.04 #; Mean Corpuscular HGB Conc 30.9 GM/DL (32-36); Mean Corpuscular Hemoglobin 28 PG (27-34); Mean Corpuscular Volume 88.9 FL (87-102); Mean Platelet Volume 10.3 FL (9.6-12.0); Monocytes # 0.5 10*3/uL (0.11-0.8); Monocytes % 6.3 % (1.7-12.7); Neutrophils # 4.9 10*3/uL (1.4-7.4); Platelet Count 266 T/CUMM (130-400); Red Cell Distribution Width 20.1 % (9.3-17.3); White Blood Count 8.5 T/CUMM (4-12)
[2017-08-16 06:00] LABS: Calcium 7.6 MG/DL (8.5-10.1); Magnesium 2.3 MG/DL (1.8-2.4); Osmolality,Calculated 303.4 MOS/KG (273-304); Potassium 3.5 MMOL/L (3.5-5.1)
[2017-08-16 06:04] LABS: Eosinophils 18 % (0-10); Hypochromasia 2+; Lymphocytes 20 % (20-55); Segmented Neutrophils 56 % (50-85); Total Cells Counted 100
[2017-08-16 06:05] LABS: Microcytosis 1+; Platelet Estimate Normal; Target Cells Slight
[2017-08-16] MEDS: FUROSEMIDE 40 MG/4 ML VIAL IV SCH (10:43)
[2017-08-16] MEDS: metOLazone 5 MG TABLET PO SCH (10:44)
[2017-08-16] MEDS: ISOSORBIDE MONONITRATE 30 MG TABLET PO SCH (10:48)
[2017-08-16] MEDS: ASPIRIN EC 81 MG TABLET PO SCH (10:48)
[2017-08-16] MEDS: PANTOPRAZOLE 40 MG TABLET PO SCH (10:48)
[2017-08-16] MEDS: ATORVASTATIN 20 MG TABLET PO SCH (10:48)
[2017-08-16] MEDS: AMIODARONE 200 MG TABLET PO SCH ×2 (10:48→21:35)
[2017-08-16] MEDS: CARVEDILOL 12.5 MG TABLET PO SCH ×2 (10:48→21:35)
[2017-08-16] MEDS: CILOSTAZOL 50 MG TABLET PO SCH ×2 (10:48→21:34)
[2017-08-16] MEDS: MULTIVITAMIN (CENTRUM) TABLET PO SCH (10:48)
[2017-08-16] MEDS: HYDROCORTISONE 10 MG TABLET PO SCH ×2 (10:49→21:34)
[2017-08-16] MEDS: CEFUROXIME 250 MG TABLET PO SCH ×2 (10:51→21:34)
[2017-08-16] MEDS: COLLAGENASE OINT 30 GM TUBE TOP SCH (13:44)
[2017-08-16] MEDS: ZINC OXIDE PASTE 113 GM TUBE TOP SCH ×2 (13:44→21:47)
[2017-08-16] MEDS: SKIN HEALING OINT (AQUAPHOR) 50 GM TUBE TOP SCH (13:44)
[2017-08-16] MEDS ORDERED: FUROSEMIDE 40 MG TABLET PO SCH (16:00)
[2017-08-16] MEDS: ACETIC ACID 0.25% IRRIGATION 1,000 ML BOTTLE IRRIG SCH (16:00)
[2017-08-16] MEDS: GENTAMICIN 0.1% CREAM 15 GM TUBE TOP SCH (16:01)
[2017-08-16] MEDS: ENOXAPARIN 30 MG/0.3 ML SYRINGE SUBCUT SCH (21:47)
[2017-08-17 05:18] LABS: Basophils % 0.4 % (0.0-0.8); Eosinophils # 1.1 10*3/uL (0.0-0.87); Eosinophils % 12.2 % (0.00-10.9); Hematocrit 26.3 VOL% (35.7-47.0); Hemoglobin 8.2 GM/DL (12.0-16.0); Immature Granulocytes % 0.3 %; Immature Granulocytes Absolute 0.03 #; Lymphocytes # 1.8 10*3/uL (1.4-4.0); Lymphocytes % 20.1 % (21.3-54.2); Mean Corpuscular HGB Conc 31.2 GM/DL (32-36); Mean Corpuscular Hemoglobin 28 PG (27-34); Mean Corpuscular Volume 89.2 FL (87-102); Mean Platelet Volume 10.9 FL (9.6-12.0); Monocytes # 0.6 10*3/uL (0.11-0.8); Monocytes % 6.3 % (1.7-12.7); Neutrophils # 5.4 10*3/uL (1.4-7.4); Neutrophils % 60.7 % (38.7-73.9); Platelet Count 274 T/CUMM (130-400); Red Blood Count 2.95 MC/CUMM (3.8-5.5); Red Cell Distribution Width 19.9 % (9.3-17.3); White Blood Count 8.9 T/CUMM (4-12)
[2017-08-17 05:48] LABS: Eosinophils 18 % (0-10); Giant Platelets Few; Hypochromasia 1+; Lymphocytes 14 % (20-55); Microcytosis Slight; Ovalocytes Slight; Platelet Estimate Adequate; Segmented Neutrophils 61 % (50-85); Total Cells Counted 100
[2017-08-17 05:50] LABS: Folate 7.4 NG/ML (5.4-24.0); Vitamin B12 336 PG/ML (211-911)
[2017-08-17 06:32] LABS: Sedimentation Rate-Westergren 85 MM/HR (0-30)
[2017-08-17 08:17] LABS: Calcium 7.9 MG/DL (8.5-10.1); Magnesium 2.2 MG/DL (1.8-2.4); Osmolality,Calculated 299.8 MOS/KG (273-304); Potassium 3.5 MMOL/L (3.5-5.1)
[2017-08-17] MEDS ORDERED: FUROSEMIDE 80 MG TABLET PO SCH (09:00)
[2017-08-17 09:46] LABS: Hemoglobin A1 (Alkaline) 97.6 % (96.5-98.5); Hemoglobin A2 (Alkaline) 2.4 % (1.5-3.5)
[2017-08-17] MEDS: ZINC OXIDE PASTE 113 GM TUBE TOP SCH (10:15)
[2017-08-17] MEDS: CEFUROXIME 250 MG TABLET PO SCH (10:23)
[2017-08-17] MEDS: MULTIVITAMIN (CENTRUM) TABLET PO SCH (10:24)
[2017-08-17] MEDS: HYDROCORTISONE 10 MG TABLET PO SCH (10:24)
[2017-08-17] MEDS: CILOSTAZOL 50 MG TABLET PO SCH (10:24)
[2017-08-17] MEDS: metOLazone 5 MG TABLET PO SCH (10:24)
[2017-08-17] MEDS: PANTOPRAZOLE 40 MG TABLET PO SCH (10:24)
[2017-08-17] MEDS: CARVEDILOL 12.5 MG TABLET PO SCH (10:24)
[2017-08-17] MEDS: ATORVASTATIN 20 MG TABLET PO SCH (10:25)
[2017-08-17] MEDS: ASPIRIN EC 81 MG TABLET PO SCH (10:25)
[2017-08-17] MEDS: AMIODARONE 200 MG TABLET PO SCH (10:25)
[2017-08-17] MEDS: ISOSORBIDE MONONITRATE 30 MG TABLET PO SCH (10:25)
[2017-08-17 12:12] VITALS: BP 142/65
[2017-08-17] MEDS: SKIN HEALING OINT (AQUAPHOR) 50 GM TUBE TOP SCH (13:31)
[2017-08-17] MEDS: COLLAGENASE OINT 30 GM TUBE TOP SCH (13:31)
[2017-08-17] MEDS: ACETIC ACID 0.25% IRRIGATION 1,000 ML BOTTLE IRRIG SCH (14:54)
[2017-08-17] MEDS: GENTAMICIN 0.1% CREAM 15 GM TUBE TOP SCH (14:55)
== END 2017-08-17 16:12 | disposition home or self-care (01) | DRG 291 ==
LOC: N.ED 16:43 → N.EDINP 20:51 → N.TELES 21:19
PROVIDERS: ADMIT Internal Medicine; ATTEND Internal Medicine

== ENCOUNTER 2017-09-01 07:48 | Inpatient (IN) ==
[2017-09-01] MEDS ORDERED: FUROSEMIDE 100 MG/10 ML VIAL IV STA (08:12)
[2017-09-01 08:42] LABS: Apearance,Urine CLEAR (Clear); Bilirubin,Urine Negative (Negative); Blood, Urine Negative (Negative); Glucose,Urine (UA) Negative (Negative); Ketones,Urine Negative (Negative); Nitrite,Urine Negative (Negative); Protein,Urine Negative; RBC,Urine <1 /HPF (0-4); Urine Color Yellow (Yellow); Urine Specific Gravity 1.009 (1.001-1.035); Urine Urobilinogen < 2.0 EU/DL (0.2-1.0); WBC,Urine <1 /HPF (0-6)
[2017-09-01 08:48] LABS: Basophils # 0.1 10*3/uL (0.0-0.2); Basophils % 0.4 % (0.0-0.8); Eosinophils # 1.2 10*3/uL (0.0-0.87); Eosinophils % 10.5 % (0.00-10.9); Hematocrit 29.4 VOL% (35.7-47.0); Hemoglobin 9.4 GM/DL (12.0-16.0); Immature Granulocytes % 0.4 %; Immature Granulocytes Absolute 0.05 #; Lymphocytes # 2.3 10*3/uL (1.4-4.0); Lymphocytes % 19.6 % (21.3-54.2); Mean Corpuscular Hemoglobin 29 PG (27-34); Mean Corpuscular Volume 89.9 FL (87-102); Mean Platelet Volume 10.7 FL (9.6-12.0); Monocytes # 0.5 10*3/uL (0.11-0.8); Monocytes % 4.3 % (1.7-12.7); Neutrophils # 7.6 10*3/uL (1.4-7.4); Neutrophils % 64.8 % (38.7-73.9); Platelet Count 249 T/CUMM (130-400); Red Blood Count 3.27 MC/CUMM (3.8-5.5); Red Cell Distribution Width 20.2 % (9.3-17.3); White Blood Count 11.8 T/CUMM (4-12)
[2017-09-01] MEDS ORDERED: FUROSEMIDE 40 MG/4 ML VIAL ONE (08:52)
[2017-09-01 09:00] LABS: INR 1.1; PT Patient Result 11.7 SECS; Partial Thromboplastin Time 25.2 SECS (0-40)
[2017-09-01 09:39] LABS: Albumin 2.4 G/DL (3.4-5.0); Bilirubin,Total 0.4 MG/DL (0.2-1.0); Magnesium 2.3 MG/DL (1.8-2.4); Osmolality,Calculated 291.1 MOS/KG (273-304); Potassium 4.1 MMOL/L (3.5-5.1); Total Protein 6.9 G/DL (6.4-8.3); Troponin I Only 0.028 NG/ML (0.00-0.045)
[2017-09-01] MEDS ORDERED: DOCUSATE SODIUM 100 MG CAPSULE PO PRN (11:56)
[2017-09-01] MEDS ORDERED: GLUCAGON 1 MG VIAL IM PRN (11:56)
[2017-09-01] MEDS ORDERED: POTASSIUM CHLORIDE 20 MEQ TABLET PO PRN (11:56)
[2017-09-01] MEDS ORDERED: MAGNESIUM SULF RIDER 2 GM in PREMIX 1 EACH IV PRN (11:56)
[2017-09-01] MEDS ORDERED: LACTULOSE 20 GM/30 ML UDCUP PO PRN (11:56)
[2017-09-01] MEDS ORDERED: MAGNESIUM SULF RIDER 4 GM in PREMIX 1 EACH IV PRN (11:56)
[2017-09-01] MEDS ORDERED: DEXTROSE 50% 25 GM/50 ML SYRINGE IV ONE (12:15)
[2017-09-01] MEDS ORDERED: DEXTROSE 50% 25 GM/50 ML VIAL IV STA (12:16)
[2017-09-01 13:45] LABS: Troponin I Only 0.036 NG/ML (0.00-0.045)
[2017-09-01 13:50] LABS: Magnesium 2.3 MG/DL (1.8-2.4); Thyroid Stimulating Hormone 8.64 uIU/ml (0.358-3.74)
[2017-09-01] MEDS: ENOXAPARIN 30 MG/0.3 ML SYRINGE SUBCUT SCH (16:58)
[2017-09-01] MEDS: INSULIN LISPRO 100 UNIT/ML SUBCUT SCH ×2 (16:59→20:57)
[2017-09-01] MEDS: FUROSEMIDE 40 MG/4 ML VIAL IV SCH (16:59)
[2017-09-02 04:52] LABS: Basophils # 0.1 10*3/uL (0.0-0.2); Basophils % 0.5 % (0.0-0.8); Eosinophils # 1.1 10*3/uL (0.0-0.87); Eosinophils % 10.9 % (0.00-10.9); Hemoglobin 8.3 GM/DL (12.0-16.0); Immature Granulocytes % 0.3 %; Immature Granulocytes Absolute 0.03 #; Lymphocytes # 2.2 10*3/uL (1.4-4.0); Lymphocytes % 22.4 % (21.3-54.2); Mean Corpuscular HGB Conc 30.7 GM/DL (32-36); Mean Corpuscular Hemoglobin 28 PG (27-34); Mean Corpuscular Volume 90.9 FL (87-102); Monocytes # 0.6 10*3/uL (0.11-0.8); Neutrophils # 5.8 10*3/uL (1.4-7.4); Neutrophils % 59.9 % (38.7-73.9); Platelet Count 241 T/CUMM (130-400); Red Blood Count 2.97 MC/CUMM (3.8-5.5); White Blood Count 9.7 T/CUMM (4-12)
[2017-09-02] MEDS: INSULIN LISPRO 100 UNIT/ML SUBCUT SCH ×4 (07:38→23:09)
[2017-09-02] MEDS: DEXTROSE 50% 25 GM/50 ML VIAL IV PRN (07:38)
[2017-09-02 08:32] LABS: Potassium 4.2 MMOL/L (3.5-5.1)
[2017-09-02 08:34] LABS: Calcium 7.9 MG/DL (8.5-10.1)
[2017-09-02 08:40] LABS: Osmolality,Calculated 294.1 MOS/KG (273-304)
[2017-09-02] MEDS: PANTOPRAZOLE 40 MG TABLET PO SCH (09:19)
[2017-09-02] MEDS: ASPIRIN CHEW 81 MG TABLET PO SCH (09:19)
[2017-09-02] MEDS: FUROSEMIDE 40 MG/4 ML VIAL IV SCH ×2 (09:19→15:18)
[2017-09-02] MEDS: ACETAMINOPHEN 325 MG TABLET PO PRN ×2 (13:29→19:39)
[2017-09-02] MEDS: ENOXAPARIN 30 MG/0.3 ML SYRINGE SUBCUT SCH (13:29)
[2017-09-03] MEDS: IPRATROPIUM 500 MCG/2.5 ML NEB RESP TX PRN (02:30)
[2017-09-03 03:42] LABS: Basophils % 0.4 % (0.0-0.8); Eosinophils # 1.3 10*3/uL (0.0-0.87); Hematocrit 26.2 VOL% (35.7-47.0); Hemoglobin 8.1 GM/DL (12.0-16.0); Immature Granulocytes % 0.3 %; Immature Granulocytes Absolute 0.03 #; Lymphocytes # 2.1 10*3/uL (1.4-4.0); Mean Corpuscular HGB Conc 30.9 GM/DL (32-36); Mean Corpuscular Hemoglobin 28 PG (27-34); Mean Platelet Volume 11.4 FL (9.6-12.0); Monocytes # 0.7 10*3/uL (0.11-0.8); Monocytes % 6.7 % (1.7-12.7); Neutrophils % 58.6 % (38.7-73.9); Platelet Count 209 T/CUMM (130-400); Red Blood Count 2.88 MC/CUMM (3.8-5.5); Red Cell Distribution Width 20.2 % (9.3-17.3); White Blood Count 10.2 T/CUMM (4-12)
[2017-09-03 04:07] LABS: Calcium 8.1 MG/DL (8.5-10.1); Osmolality,Calculated 300.7 MOS/KG (273-304); Potassium 4.5 MMOL/L (3.5-5.1)
[2017-09-03 04:29] LABS: Band Neutrophils 1 % (0-10); Eosinophils 9 % (0-10); Lymphocytes 20 % (20-55); Segmented Neutrophils 67 % (50-85); Total Cells Counted 100
[2017-09-03 04:30] LABS: Anisocytosis 1+; Hypochromasia 1+; Platelet Estimate Normal; Target Cells Few
[2017-09-03] MEDS: INSULIN LISPRO 100 UNIT/ML SUBCUT SCH ×4 (09:08→21:17)
[2017-09-03] MEDS: MULTIVITAMIN (CENTRUM) TABLET PO SCH (09:24)
[2017-09-03] MEDS: ASPIRIN CHEW 81 MG TABLET PO SCH (09:24)
[2017-09-03] MEDS: PANTOPRAZOLE 40 MG TABLET PO SCH (09:24)
[2017-09-03] MEDS: INSULIN NPH/REGULAR 70/30 100 UNIT/ML SUBCUT SCH (09:25)
[2017-09-03] MEDS: CILOSTAZOL 50 MG TABLET PO SCH ×2 (09:25→21:17)
[2017-09-03] MEDS: FUROSEMIDE 40 MG/4 ML VIAL IV SCH ×2 (09:25→16:15)
[2017-09-03] MEDS ORDERED: ZINC OXIDE PASTE 113 GM TUBE TOP PRN (09:43)
[2017-09-03] MEDS: ENOXAPARIN 30 MG/0.3 ML SYRINGE SUBCUT SCH (11:09)
[2017-09-03] MEDS: DEXTROSE 50% 25 GM/50 ML VIAL IV PRN (14:35)
[2017-09-03] MEDS ORDERED: methylPREDNISolone SOD SUC 40 MG/1 ML VIAL IV ONE (14:39)
[2017-09-03] MEDS: ACETAMINOPHEN 325 MG TABLET PO PRN (20:46)
[2017-09-03] MEDS ORDERED: INSULIN GLARGINE 100 UNIT/ML SUBCUT SCH (21:00)
[2017-09-03] MEDS: ATORVASTATIN 20 MG TABLET PO SCH (21:17)
[2017-09-04 05:12] LABS: Basophils % 0.1 % (0.0-0.8); Hematocrit 28.4 VOL% (35.7-47.0); Hemoglobin 8.8 GM/DL (12.0-16.0); Immature Granulocytes % 0.5 %; Immature Granulocytes Absolute 0.05 #; Lymphocytes # 2.5 10*3/uL (1.4-4.0); Lymphocytes % 23.4 % (21.3-54.2); Mean Corpuscular Hemoglobin 28 PG (27-34); Mean Corpuscular Volume 90.2 FL (87-102); Mean Platelet Volume 10.4 FL (9.6-12.0); Monocytes # 0.2 10*3/uL (0.11-0.8); Monocytes % 1.7 % (1.7-12.7); Neutrophils % 74.3 % (38.7-73.9); Platelet Count 265 T/CUMM (130-400); Red Blood Count 3.15 MC/CUMM (3.8-5.5); Red Cell Distribution Width 20.1 % (9.3-17.3); White Blood Count 10.7 T/CUMM (4-12)
[2017-09-04 05:48] LABS: Osmolality,Calculated 310.3 MOS/KG (273-304); Potassium 5.1 MMOL/L (3.5-5.1)
[2017-09-04] MEDS: INSULIN LISPRO 100 UNIT/ML SUBCUT SCH ×5 (09:13→21:16)
[2017-09-04] MEDS: FUROSEMIDE 40 MG/4 ML VIAL IV SCH (09:14)
[2017-09-04] MEDS: ENOXAPARIN 30 MG/0.3 ML SYRINGE SUBCUT SCH (09:14)
[2017-09-04] MEDS: CILOSTAZOL 50 MG TABLET PO SCH ×2 (09:14→21:13)
[2017-09-04] MEDS: MULTIVITAMIN (CENTRUM) TABLET PO SCH (09:14)
[2017-09-04] MEDS: INSULIN NPH/REGULAR 70/30 100 UNIT/ML SUBCUT SCH ×2 (09:24→09:27)
[2017-09-04] MEDS: PANTOPRAZOLE 40 MG TABLET PO SCH (09:24)
[2017-09-04] MEDS: ASPIRIN CHEW 81 MG TABLET PO SCH (09:24)
[2017-09-04] MEDS ORDERED: SKIN HEALING OINT (AQUAPHOR) 50 GM TUBE TOP PRN (11:20)
[2017-09-04] MEDS: IPRATROPIUM 500 MCG/2.5 ML NEB RESP TX PRN (13:18)
[2017-09-04] MEDS: COLLAGENASE OINT 30 GM TUBE TOP SCH (16:21)
[2017-09-04] MEDS: FUROSEMIDE 40 MG TABLET PO SCH (16:21)
[2017-09-04] MEDS: ACETAMINOPHEN 325 MG TABLET PO PRN (18:39)
[2017-09-04] MEDS: ATORVASTATIN 20 MG TABLET PO SCH (21:14)
[2017-09-05 07:28] LABS: Calcium 8.2 MG/DL (8.5-10.1); Osmolality,Calculated 297.3 MOS/KG (273-304); Potassium 4.9 MMOL/L (3.5-5.1)
[2017-09-05] MEDS: INSULIN LISPRO 100 UNIT/ML SUBCUT SCH ×2 (09:06→12:12)
[2017-09-05] MEDS: ENOXAPARIN 30 MG/0.3 ML SYRINGE SUBCUT SCH (09:37)
[2017-09-05] MEDS: ASPIRIN CHEW 81 MG TABLET PO SCH (09:37)
[2017-09-05] MEDS: CILOSTAZOL 50 MG TABLET PO SCH (09:37)
[2017-09-05] MEDS: FUROSEMIDE 40 MG TABLET PO SCH (09:37)
[2017-09-05] MEDS: MULTIVITAMIN (CENTRUM) TABLET PO SCH (09:37)
[2017-09-05] MEDS: PANTOPRAZOLE 40 MG TABLET PO SCH (09:37)
[2017-09-05] MEDS: COLLAGENASE OINT 30 GM TUBE TOP SCH (09:39)
[2017-09-05 12:35] VITALS: BP 166/71
== END 2017-09-05 13:30 | disposition home health service (06) | DRG 291 ==
LOC: N.ED 07:48 → SUATTDRO 10:22 → N.EDINP 10:22 → N.2E 12:49
PROVIDERS: ADMIT Internal Medicine Nephrology; ATTEND Internal Medicine